=== PATIENT | male | born 1955 | race Caucasian/White ===

== ENCOUNTER 2018-06-01 17:14 | Emergency (ER) | payer OTHER ==
[2018-06-01 18:26] LABS: Absolute Lymphocytes (CBC) 3.3 K/uL (0.7-4.9); Absolute Monocytes 0.7 K/uL (0.1-1.3); Absolute Neutrophil 4.7 K/uL (1.8-8.0); Basophils % 0.5 % (0-1.3); Eosinophils % 2.6 % (0-4.4); Hematocrit 45.8 % (39.6-49.0); Lymphocytes % 36.7 % (15.3-44.8); MPV 8.2 fL (7.6-11.3); Monocytes % 8.2 % (3.3-12.3); RBC Red Blood Cell Count 5.48 M/uL (4.33-5.43)
[2018-06-01 18:30] LABS: Protime INR 1.04
[2018-06-01] MEDS ORDERED: FENTANYL CITR 100 MCG/2 ML ONE (18:39)
[2018-06-01] MEDS ORDERED: ONDANSETRON 4 MG/2 ML VIAL ONE (18:39)
[2018-06-01 18:47] LABS: ALT/SGPT 28 U/L (12-78); AST/SGOT 14 U/L (15-37); Albumin 3.4 g/dL (3.4-5.0); Alkaline Phosphatase 87 U/L (45-117); BUN Blood Urea Nitrogen 17 mg/dL (7-18); Bicarbonate 27 mmol/L (21-32); Bilirubin Direct < 0.1 mg/dL (0-0.2); Bilirubin Total 0.4 mg/dL (0.2-1.0); Glucose Level 312 mg/dL (74-106); NT PRO-BNP 6 pg/mL (<125); Protein, Total 7.3 g/dL (6.4-8.2); Sodium Level 133 mmol/L (136-145); Thyroid Stimulating Hormone 0.767 uIU/mL (0.360-3.740); Troponin (Emerg Dept Use Only) < 0.02 ng/mL (0.0-0.045)
--- NOTE | 2018-06-01 18:59 | RAD REPORT ---
EXAM DESCRIPTION: RAD - Chest Single View - 06/01/2018 6:35 pm CLINICAL HISTORY: Weight loss, weakness, shortness of breath COMPARISON: None. TECHNIQUE: AP portable chest image was obtained 1820 hours . FINDINGS: Lungs are clear. Heart and vasculature are normal. No measurable pleural effusion and no p neumothorax. No acute bony abnormality seen. No acute aortic findings suspected. IMPRESSION: No acute cardiopulmonary process.
--- NOTE | 2018-06-01 19:33 | EDPHYS ---
Physician Documentation [facility] Name: John Barrios Age: 62 yrs Sex: Male : 1955 Arrival Date: 06/01/2018 Time: 17:16 Bed 5 Private MD: ED Physician Jameel Wright HPI: 06/01 19:28 This 62 yrs old Male presents to ER via EMS with complaints of General jr8 Weakness. 19:28 Onset: The symptoms/episode began/occurred gradually, 1 month(s) ago, and became jr8 persistent. Associated signs and symptoms: The patient has no apparent associated signs or symptoms. Modifying factors: The patient symptoms are alleviated by nothing, the patient symptoms are aggravated by nothing. The patient has not experienced similar symptoms in the past. The patient has not recently seen a physician. Historical: - Allergies: 17:27 NKA; iw - Home Meds: 19:25 Xanax 1 mg oral tab [Active]; ak1 - PMHx: 17:27 Anxiety; Depression; iw - PSHx: 17:27 Appendectomy; iw - Immunization history:: Adult Immunizations not up to date. - Social history:: Smoking status: Patient/guardian denies using tobacco. - Ebola Screening: : Patient negative for fever greater than or equal to 101.5 degrees Fahrenheit, and additional compatible Ebola Virus Disease symptoms Patient denies exposure to infectious person Patient denies travel to an Ebola-affected area in the 21 days before illness onset No symptoms or risks identified at this time. ROS: 19:28 Eyes: Negative for injury, pain, redness, and discharge, ENT: Negative for injury, jr8 pain, and discharge, Neck: Negative for injury, pain, and swelling, Cardiovascular: Negative for chest pain, palpitations, and edema, Respiratory: Negative for shortness of breath, cough, wheezing, and pleuritic chest pain, Abdomen/GI: Negative for abdominal pain, nausea, vomiting, diarrhea, and constipation, Back: Negative for injury and pain, MS/Extremity: Negative for injury and deformity, Skin: Negative for injury, rash, and discoloration, Neuro: Negative for headache, weakness, numbness, tingling, and seizure. 19:28 Constitutional: Positive for fatigue, malaise. Exam: 19:28 Eyes: Pupils equal round and reactive to light, extra-ocular motions intact. Lids and jr8 lashes normal. Conjunctiva and sclera are non-icteric and not injected. Cornea within normal limits. Periorbital areas with no swelling, redness, or edema. ENT: Nares patent. No nasal discharge, no septal abnormalities noted. Tympanic membranes are normal and external auditory canals are clear. Oropharynx with no redness, swelling, or masses, exudates, or evidence of obstruction, uvula midline. Mucous membranes moist. Neck: Trachea midline, no thyromegaly or masses palpated, and no cervical lymphadenopathy. Supple, full range of motion without nuchal rigidity, or vertebral point tenderness. No Meningismus. Cardiovascular: Regular rate and rhythm with a normal S1 and S2. No gallops, murmurs, or rubs. Normal PMI, no JVD. No pulse deficits. Respiratory: Lungs have equal breath sounds bilaterally, clear to auscultation and percussion. No rales, rhonchi or wheezes noted. No increased work of breathing, no retractions or nasal flaring. Abdomen/GI: Soft, non-tender, with normal bowel sounds. No distension or tympany. No guarding or rebound. No evidence of tenderness throughout. Back: No spinal tenderness. No costovertebral tenderness. Full range of motion. Skin: Warm, dry with normal turgor. Normal color with no rashes, no lesions, and no evidence of cellulitis. MS/ Extremity: Pulses equal, no cyanosis. Neurovascular intact. Full, normal range of motion. Neuro: Awake and alert, GCS 15, oriented to person, place, time, and situation. Cranial nerves II-XII grossly intact. Motor strength 5/5 in all extremities. Sensory grossly intact. Cerebellar exam normal. Normal gait. Vital Signs: 17:28 BP 136 / 87; Pulse 106; Resp 18 S; Temp 98.2(O); Pulse Ox 98% on R/A; Weight 83.91 kg; iw Height 6 ft. 0 in. (182.88 cm); Pain 7/10; 18:16 BP 135 / 85; Pulse 102; Resp 17; Pulse Ox 99% on R/A; Pain 8/10; hb 19:23 BP 130 / 89; Pulse 94; Resp 16; Pulse Ox 97% on R/A; Pain 6/10; ak1 17:28 Body Mass Index 25.09 (83.91 kg, 182.88 cm) iw 19:23 pt c/o pain to right shoulder due to chronic shoulder pain. ak1 NIH Stroke Scale Scores: 18:05 NIHSS Score: 0 hb MDM: 17:21 Patient medically screened. [facility] 19:28 Data reviewed: vital signs, nurses notes, lab test result(s), EKG, radiologic studies, [facility] plain films, and as a result, I will discharge patient. Data interpreted: Pulse oximetry: on room air is 97 %. Interpretation: normal. Counseling: I had a detailed discussion with the patient and/or guardian regarding: the historical points, exam findings, and any diagnostic results supporting the discharge/admit diagnosis, lab results, radiology results, the need for outpatient follow up, a family practitioner, to return to the emergency department if symptoms worsen or persist or if there are any questions or concerns that arise at home. 06/01 17:57 Order name: Influenza Screen (a \T\ B) [facility] 06/01 17:57 Order name: [place] Screen Profile [facility] 06/01 17:57 Order name: Basic Metabolic Panel [facility] 06/01 17:57 Order name: CBC with Diff; Complete Time: 18:39 [facility] 06/01 17:57 Order name: LFT's; Complete Time: 18:57 [facility] 06/01 17:57 Order name: Magnesium; Complete Time: 18:57 [facility] 06/01 17:57 Order name: NT PRO-BNP; Complete Time: 18:57 [facility] 06/01 17:57 Order name: PT-INR; Complete Time: 18:39 [facility] 06/01 17:57 Order name: Troponin (emerg Dept Use Only); Complete Time: 18:57 [facility] 06/01 17:57 Order name: TSH; Complete Time: 18:57 [facility] 06/01 17:57 Order name: T4 Free; Complete Time: 18:57 [facility] 06/01 17:57 Order name: Influenza Screen (A ; Complete Time: 18:57 [facility] 06/01 17:57 Order name: [place] Screen; Complete Time: 18:57 [facility] 06/01 17:57 Order name: Basic Metabolic Panel; Complete Time: 18:57 [facility] 06/01 17:57 Order name: XRAY Chest (1 view); Complete Time: 19:27 [facility] 06/01 17:57 Order name: EKG; Complete Time: 17:58 [facility] 06/01 17:57 Order name: Cardiac monitoring; Complete Time: 18:17 [facility] 06/01 17:57 Order name: EKG - Nurse/Tech; Complete Time: 18:17 06/01 17:57 Order name: IV Saline Lock; Complete Time: 18:18 [facility] 06/01 17:57 Order name: Labs collected and sent; Complete Time: 18:18 [facility] 06/01 17:57 Order name: O2 Per Protocol; Complete Time: 18:18 [facility] 06/01 17:57 Order name: O2 Sat Monitoring; Complete Time: 18:18 [facility] 06/01 18:14 Order name: Glucose, Ancillary Testing; Complete Time: 18:20 [facility] 06/01 19:16 Order name: Urine Dipstick--Ancillary (enter results) mw2 Administered Medications: 18:10 Drug: NS 0.9% 1000 ml Route: IV; Rate: 1000 ml; Site: left antecubital; hb 19:49 Follow up: IV Status: Completed infusion ak1 18:32 Drug: fentaNYL (PF) 50 mcg Route: IVP; Site: left antecubital; hb 19:49 Follow up: Response: No adverse reaction ak1 18:33 Drug: Zofran 4 mg Route: IVP; Site: left antecubital; hb 19:49 Follow up: Response: No adverse reaction ak1 19:48 Drug: Ativan 0.5 mg Route: PO; ak1 19:51 Follow up: Response: Medication administered at discharge.; Medication administered at ak1 discharge.pt has son coming to pick him up Point of Care Testing: Blood Glucose: 18:12 Blood Glucose: 301 mg/dL; sg Ranges: Critical Glucose Levels:Adult <50 mg/dl or >400 mg/dl <40 mg/dl or >180 mg/dl Disposition: 06/02 15:57 Co-signature as Attending Physician, Jameel Wright MD I agree with the assessment and kdr plan of care. Disposition: 06/01/18 19:32 Discharged to Home. Impression: Type 2 diabetes mellitus, Hyperglycemia, unspecified. - Condition is Stable. - Discharge Instructions: Type 2 Diabetes Mellitus, Diagnosis, Adult, Hyperglycemia, Blood Glucose Monitoring, Adult, Diabetes Mellitus and Food, Preventing Type 2 Diabetes Mellitus, Screening for Type 2 Diabetes. - Prescriptions for Metformin 500 mg Oral Tablet - take 1 tablet by ORAL route once daily for 7 days Then take 1 tablet with morning meals AND evening meals; 30 tablet. - Medication Reconciliation Form, Thank You Letter, Antibiotic Education, Prescription Opioid Use form. - Follow up: Private Physician; When: 2 - 3 days; Reason: Recheck today's complaints, Continuance of care, Re-evaluation by your physician. - Problem is new. - Symptoms have improved. NIH Stroke Scale - NIH Stroke Score Date: 06/01/2018 Time: 18:05 Total Score = 0 1a. Level of Consciousness (LOC) - 0(Alert) 1b. Level of Consciousness (LOC) (Year \T\ Age) - 0(Both) 1c. LOC Commands (Open \T\ Closes Eyes/Thread Tool Grinder Set Up Operator) - 0(Both) 2. Best Gaze (Lateral Gaze Paresis) - 0(Normal) 3. Visual Field Loss - 0(No visual loss) 4. Facial Palsy - 0(Normal) 5a. Left Arm: Motor (10-second hold) - 0(No drift) 5b. Right Arm: Motor (10-second hold) - 0(No drift) 6a. Left Leg: Motor (5-second hold - always test supine) - 0(No drift) 6b. Right Leg: Motor (5-second hold - always test supine) - 0(No drift) 7. Limb Ataxia (finger/nose \T\ heel/singh - test with eyes open) - 0(Absent) 8. Sensory Loss (pinprick arms/legs/face) - 0(Normal) 9. Best Language: Aphasia (description/naming/reading) - 0(No aphasia) 10. Dysarthria (speech clarity - read or repeat words) - 0(Normal) 11. Extinction and Inattention (visual/tactile/auditory/spatial/personal) - 0(No abnormality) Initials: hb Signatures: Dispatcher [employer] EDMS Jameel Wright MD MD kdr Williams, Irene, RN RN iw Roszak, Josh, PA PA jr8 Millie Hoffmann RN RN ak1 Earlene Galvan RN RN hb Corrections: (The following items were deleted from the chart) 06/01 19:32 19:32 06/01/2018 19:32 Discharged to Home. Impression: Type 2 diabetes jr8 mellitus. Condition is Stable. Forms are Medication Reconciliation Form, Thank You Letter, Antibiotic Education, Prescription Opioid Use. Follow up: Private Physician; When: 2 - 3 days; Reason: Recheck today's complaints, Continuance of care, Re-evaluation by your physician. Problem is new. Symptoms have improved. jr8 19:50 19:32 06/01/2018 19:32 Discharged to Home. Impression: Type 2 diabetes ak1 mellitus; Hyperglycemia, unspecified. Condition is Stable. Forms are Medication Reconciliation Form, Thank You Letter, Antibiotic Education, Prescription Opioid Use. Follow up: Private Physician; When: 2 - 3 days; Reason: Recheck today's complaints, Continuance of care, Re-evaluation by your physician. Problem is new. Symptoms have improved. jr8
--- NOTE | 2018-06-01 19:33 | ER ---
Nurse's Notes [facility] Name: John Barrios Age: 62 yrs Sex: Male : 1955 Arrival Date: 06/01/2018 Time: 17:16 Bed 5 Private MD: Diagnosis: Type 2 diabetes mellitus;Hyperglycemia, unspecified Presentation: 06/01 17:19 Presenting complaint: Patient states: has been feeling very weak since Friday, can't iw sleep because he's so tired, c/o headache today, mild dizziness and blurry vision today, also c/o elpidio leg pain, states he is borderline diabetic, denies fever. Transition of care: patient was not received from another setting of care. Onset of symptoms was June 01, 2018. Risk Assessment: Do you want to hurt yourself or someone else? Patient reports no desire to harm self or others. Initial Sepsis Screen: Does the patient meet any 2 criteria? No. Patient's initial sepsis screen is negative. Does the patient have a suspected source of infection? No. Patient's initial sepsis screen is negative. Care prior to arrival: IV initiated. 20 GA, in the left antecubital area, Glucose check: 277. 17:19 Method Of Arrival: EMS: [facility] iw 17:19 Acuity: MELY 3 iw Historical: - Allergies: 17:27 NKA; iw - Home Meds: 19:25 Xanax 1 mg oral tab [Active]; ak1 - PMHx: 17:27 Anxiety; Depression; iw - PSHx: 17:27 Appendectomy; iw - Immunization history:: Adult Immunizations not up to date. - Social history:: Smoking status: Patient/guardian denies using tobacco. - Ebola Screening: : Patient negative for fever greater than or equal to 101.5 degrees Fahrenheit, and additional compatible Ebola Virus Disease symptoms Patient denies exposure to infectious person Patient denies travel to an Ebola-affected area in the 21 days before illness onset No symptoms or risks identified at this time. Screenin:04 Patient has been NPO before screening. The patient is alert, able to follow commands. hb The patient does not exhibit slurred or garbled speech The patient is not exhibiting difficulty speaking. The patient does not exhibit difficulty understanding words. The patient is able to swallow own secretions with no drooling or need for suction. Patient tolerated one teaspoon of water. No drooling, immediate coughing, gurgling, or clearing of the throat was noted. The patient tolerated 90mL of water. No drooling, immediate coughing, gurgling, or clearing of the throat was noted. The patient passed the bedside swallow screening. Oral medications may be given as ordered. Contact Physician for further diet orders. 18:16 Abuse screen: Denies threats or abuse. Denies injuries from another. Nutritional hb screening: No deficits noted. Tuberculosis screening: No symptoms or risk factors identified. Fall Risk Total Pruitt Fall Scale indicates Low Risk Score (25-44 pts). Fall prevention measures have been instituted. Side Rails Up X 2 Frequent Obs/Assesments occuring As available Patient and Family Educated on Fall Prevention Program and strategies. Assessment: 17:30 General: Appears in no apparent distress. Behavior is calm, cooperative. Pain: Pain hb currently is 8 out of 10 on a pain scale. Neuro: Level of Consciousness is awake, alert, obeys commands, Oriented to person, place, time, situation, Publishing Manager are equal bilaterally Moves all extremities. Full function Gait is steady, Speech is normal, Facial symmetry appears normal, Pupils are PERRLA, Intact. Cardiovascular: Heart tones S1 S2 present Capillary refill < 3 seconds Patient's skin is warm and dry. Respiratory: Airway is patent Respiratory effort is even, unlabored, Respiratory pattern is regular, symmetrical, Breath sounds are clear bilaterally. GI: No signs and/or symptoms were reported involving the gastrointestinal system. : No signs and/or symptoms were reported regarding the genitourinary system. EENT: No signs and/or symptoms were reported regarding the EENT system. Derm: Skin is intact, is healthy with good turgor, Skin is pink, warm \\T\\ dry. Musculoskeletal: No signs and/or symptoms reported regarding the musculoskeletal system. 18:16 Reassessment: Patient appears in no apparent distress at this time. No changes from hb previously documented assessment. Patient and/or family updated on plan of care and expected duration. Pain level reassessed. Patient is alert, oriented x 3, equal unlabored respirations, skin warm/dry/pink. 19:25 Reassessment: Patient appears in no apparent distress at this time. Patient and/or ak1 family updated on plan of care and expected duration. Pain level reassessed. Patient is alert, oriented x 3, equal unlabored respirations, skin warm/dry/pink. pt c/o right shoulder pain from chronic shoulder pain due to "old injury" pt resting comfortably watching TV in ER5. Vital Signs: 17:28 BP 136 / 87; Pulse 106; Resp 18 S; Temp 98.2(O); Pulse Ox 98% on R/A; Weight 83.91 kg; iw Height 6 ft. 0 in. (182.88 cm); Pain 7/10; 18:16 BP 135 / 85; Pulse 102; Resp 17; Pulse Ox 99% on R/A; Pain 8/10; hb 19:23 BP 130 / 89; Pulse 94; Resp 16; Pulse Ox 97% on R/A; Pain 6/10; ak1 17:28 Body Mass Index 25.09 (83.91 kg, 182.88 cm) iw 19:23 pt c/o pain to right shoulder due to chronic shoulder pain. ak1 NIH Stroke Scale Scores: 18:05 NIHSS Score: 0 hb ED Course: 17:16 Patient arrived in ED. iw 17:21 Pedro Pablo Weinberg PA is PHCP. jr8 17:21 Jameel Wright MD is Attending Physician. jr8 17:26 Triage completed. iw 17:35 Arm band placed on. iw 18:14 Earlene Galvan, ANA LUISA is Primary Nurse. hb 18:16 Patient has correct armband on for positive identification. Bed in low position. Call hb light in reach. Side rails up X 1. 18:16 Initial lab(s) drawn, by me, sent to lab. Maintain EMS IV. Dressing intact. Good blood hb return noted. Site clean \\T\\ dry. Gauge \\T\\ site: 20g LEFT AC. 18:29 X-ray completed. Portable x-ray completed in exam room. Patient tolerated procedure az well. 18:33 XRAY Chest (1 view) In Process Unspecified. EDMS 19:23 No provider procedures requiring assistance completed. ak1 19:50 IV discontinued, intact, bleeding controlled, No redness/swelling at site. Pressure ak1 dressing applied. Administered Medications: 18:10 Drug: NS 0.9% 1000 ml Route: IV; Rate: 1000 ml; Site: left antecubital; hb 19:49 Follow up: IV Status: Completed infusion ak1 18:32 Drug: fentaNYL (PF) 50 mcg Route: IVP; Site: left antecubital; hb 19:49 Follow up: Response: No adverse reaction ak1 18:33 Drug: Zofran 4 mg Route: IVP; Site: left antecubital; hb 19:49 Follow up: Response: No adverse reaction ak1 19:48 Drug: Ativan 0.5 mg Route: PO; ak1 19:51 Follow up: Response: Medication administered at discharge.; Medication administered at ak1 discharge.pt has son coming to pick him up Point of Care Testing: Blood Glucose: 18:12 Blood Glucose: 301 mg/dL; sg Ranges: Outcome: 19:32 Discharge ordered by . jr8 19:33 Condition: good ak1 19:37 Discharged to home ambulatory. ak1 19:37 Discharge instructions given to patient, Instructed on discharge instructions, follow up and referral plans. medication usage, Demonstrated understanding of instructions, follow-up care, medications, Prescriptions given X 1. 19:50 Patient left the ED. ak1 NIH Stroke Scale - NIH Stroke Score Date: 06/01/2018 Time: 18:05 Total Score = 0 1a. Level of Consciousness (LOC) - 0(Alert) 1b. Level of Consciousness (LOC) (Year \\T\\ Age) - 0(Both) 1c. LOC Commands (Open \\T\\ Closes Eyes/Rotoprinter) - 0(Both) 2. Best Gaze (Lateral Gaze Paresis) - 0(Normal) 3. Visual Field Loss - 0(No visual loss) 4. Facial Palsy - 0(Normal) 5a. Left Arm: Motor (10-second hold) - 0(No drift) 5b. Right Arm: Motor (10-second hold) - 0(No drift) 6a. Left Leg: Motor (5-second hold - always test supine) - 0(No drift) 6b. Right Leg: Motor (5-second hold - always test supine) - 0(No drift) 7. Limb Ataxia (finger/nose \\T\\ heel/singh - test with eyes open) - 0(Absent) 8. Sensory Loss (pinprick arms/legs/face) - 0(Normal) 9. Best Language: Aphasia (description/naming/reading) - 0(No aphasia) 10. Dysarthria (speech clarity - read or repeat words) - 0(Normal) 11. Extinction and Inattention (visual/tactile/auditory/spatial/personal) - 0(No abnormality) Initials: hb Signatures: Dispatcher [employer] Antwon Dent RN RN Evelia Martinez RN RN iw Roszak, Josh, PA PA jr8 Millie Hoffmann RN RN ak1 Earlene Galvan RN RN Shaista Christianson
[2018-06-01] MEDS ORDERED: LORAZEPAM 0.5 MG TABLET ONE (19:57)
[2018-06-01 21:32] LABS: Urine Blood NEGATIVE (NEG); Urine Glucose 2+ (NEG); Urine Protein NEGATIVE (NEG)
--- NOTE | 2018-06-02 08:47 | EKG ---
Test Date: 2018-06-01 Test Time: 18:13:55 Clinical Liaison: ILIA MEASUREMENT RESULTS: Intervals: Rate: 93 NV: 172 QRSD: 76 QT: 350 QTc: 435 [place]: P: 69 NV: 172 QRS: -22 T: 76 INTERPRETIVE STATEMENTS: Normal sinus rhythm Normal ECG Compared to ECG 05/28/2008 19:14:46 No significant changes Electronically Signed On 06-02-18 08:46:29 POSTAL DELIVERY OFFICER by Mitchel Wang
== END 2018-06-01 19:50 | disposition home or self-care (01) ==
LOC: ER 17:14
DX: E11.65 Type 2 diabetes mellitus with hyperglycemia (principal); F41.9 Anxiety disorder, unspecified; F32.9 Major depressive disorder, single episode, unspecified
CPT/HCPCS: 36415; 71045; 80048; 80076; 81003; 82962; 83735; 83880; 84439; 84443; 84484; 85025; 85610; 86308; 87804 ×2; 93005; 96361; 96374; 96375; 99284; J2405; J3010

== ENCOUNTER 2019-09-24 11:58 | Emergency (ER) | payer OTHER, BC ==
--- OUTSIDE RECORDS SUMMARY | 2019-09-24 12:00 | XMS REPORT ---
:1955 Author Organization [facility] t Address [address] [place] [address] [place] [id number] Care Team Providers Name Role Phone Unavailable Unavailable Unavailable Problems This patient has no known problems. Allergies, Adverse Reactions, Alerts This patient has no known allergies or adverse reactions. Medications This patient has no known medications.
[2019-09-24 12:40] LABS: Protime INR 1.04
[2019-09-24 12:45] LABS: Absolute Lymphocytes (CBC) 2.9 K/uL (0.7-4.9)
[2019-09-24 12:51] LABS: Basophils % 0.4 % (0-1.3); Hematocrit 56.5 % (39.6-49.0); Lymphocytes % 30.5 % (15.3-44.8); MPV 8.4 fL (7.6-11.3); RBC Red Blood Cell Count 6.38 M/uL (4.33-5.43)
[2019-09-24 12:53] LABS: ALT/SGPT 39 U/L (12-78); AST/SGOT 32 U/L (15-37); Albumin 3.4 g/dL (3.4-5.0); Alkaline Phosphatase 56 U/L (45-117); BUN Blood Urea Nitrogen 11 mg/dL (7-18); Bicarbonate 28 mmol/L (21-32); Bilirubin Direct 0.1 mg/dL (0-0.2); Bilirubin Total 0.6 mg/dL (0.2-1.0); Glucose Level 172 mg/dL (74-106); Magnesium 1.8 mg/dL (1.8-2.4); NT PRO-BNP 20 pg/mL (<125); Protein, Total 7.1 g/dL (6.4-8.2); Sodium Level 135 mmol/L (136-145); Troponin (Emerg Dept Use Only) < 0.02 ng/mL (0.0-0.045)
--- NOTE | 2019-09-24 13:04 | RAD REPORT ---
EXAM DESCRIPTION: RAD - Chest Single View - 09/24/2019 12:36 pm CLINICAL HISTORY: Dyspnea;Chest pain COMPARISON: Portable May 2018 TECHNIQUE: AP portable chest image was obtained 09/24/2019 12:36 pm . FINDINGS: No focal mass or consolidation. Interstitial pattern is mildly prominent but not substanti ally different from comparison. This baseline prominence could mask mild edema or mild interstitial i nfiltrate. Heart size is normal. No vascular engorgement. Trachea is midline. No measurable pleural e ffusion and no pneumothorax. No acute bony abnormality seen. No acute aortic findings suspected. IMPRESSION: No focal mass or consolidation. Patient has a prominent baseline interstitial pattern that potentially masks early interstitial edema or interstitial infiltrate.
[2019-09-24] MEDS ORDERED: LORAZEPAM 0.5 MG TABLET ONE (13:37)
--- NOTE | 2019-09-24 14:35 | EKG ---
Test Date: 2019-09-24 Test Time: 12:03:35 Sleep Scientist: JAN MEASUREMENT RESULTS: Intervals: Rate: 108 VA: 156 QRSD: 70 QT: 306 QTc: 410 [place]: P: 66 VA: 156 QRS: -26 T: 87 INTERPRETIVE STATEMENTS: Sinus tachycardia Moderate voltage criteria for LVH, may be normal variant Borderline ECG Compared to ECG 06/01/2018 18:13:55 Left ventricular hypertrophy now present Sinus rhythm no longer present Electronically Signed On 09-24-19 14:35:29 CDT by Chris Day
--- NOTE | 2019-09-24 15:13 | EDPHYS ---
Physician Documentation [facility] Name: John Barrios Age: 64 yrs Sex: Male : 1955 Arrival Date: 09/24/2019 Time: 12:04 Bed 2 Private MD: ED Physician Ulisses Ferrera HPI: 09/23 13:20 This 64 yrs old Male presents to ER via EMS with complaints of Anxiety. jr8 13:20 The patient presents to the emergency department with anxiety. Onset: The jr8 symptoms/episode began/occurred acutely, today. Associated signs and symptoms: Pertinent positives; nausea, shortness of breath, diaphoresis . Severity of symptoms: At their worst the symptoms were moderate in the emergency department the symptoms have improved. It is unknown whether or not the patient has had similar symptoms in the past. The patient has not recently seen a physician. Patient stated that he has history of anxiety. Stated that he has had a lot of stress recently with several family deaths. Stated that his children has been fighting. While thinking today started to become anxious. Started to have nausea, diaphoresis, shortness of breath, and chest flutter. Stated that he has not had that with his anxiety in past which worried him . Historical: - Allergies: 12:10 Poison serafin; sv 12:10 No Known Drug Allergies; sv - Home Meds: 12:10 Xanax 1 mg oral tab as needed [Active]; Hydrocodone-Acetaminophen Oral [Active]; sv - PMHx: 12:10 Anxiety; Depression; Diabetes - NIDDM; sv - PSHx: 12:10 Appendectomy; sv - Immunization history:: Adult Immunizations up to date. - Social history:: Smoking status: Patient denies any tobacco usage or history of. ROS: 13:20 Eyes: Negative for injury, pain, redness, and discharge, ENT: Negative for injury, jr8 pain, and discharge, Neck: Negative for injury, pain, and swelling, Back: Negative for injury and pain, MS/Extremity: Negative for injury and deformity, Skin: Negative for injury, rash, and discoloration, Neuro: Negative for headache, weakness, numbness, tingling, and seizure. 13:20 Cardiovascular: Positive for palpitations. 13:20 Respiratory: Positive for shortness of breath. 13:20 Abdomen/GI: Positive for nausea, Negative for abdominal pain, vomiting, diarrhea, constipation, abdominal cramps, abdominal distension. 13:20 Psych: Positive for anxiety. Exam: 13:20 Eyes: Pupils equal round and reactive to light, extra-ocular motions intact. Lids and jr8 lashes normal. Conjunctiva and sclera are non-icteric and not injected. Cornea within normal limits. Periorbital areas with no swelling, redness, or edema. ENT: Nares patent. No nasal discharge, no septal abnormalities noted. Tympanic membranes are normal and external auditory canals are clear. Oropharynx with no redness, swelling, or masses, exudates, or evidence of obstruction, uvula midline. Mucous membranes moist. Neck: Trachea midline, no thyromegaly or masses palpated, and no cervical lymphadenopathy. Supple, full range of motion without nuchal rigidity, or vertebral point tenderness. No Meningismus. Respiratory: Lungs have equal breath sounds bilaterally, clear to auscultation and percussion. No rales, rhonchi or wheezes noted. No increased work of breathing, no retractions or nasal flaring. Abdomen/GI: Soft, non-tender, with normal bowel sounds. No distension or tympany. No guarding or rebound. No evidence of tenderness throughout. Back: No spinal tenderness. No costovertebral tenderness. Full range of motion. Skin: Warm, dry with normal turgor. Normal color with no rashes, no lesions, and no evidence of cellulitis. MS/ Extremity: Pulses equal, no cyanosis. Neurovascular intact. Full, normal range of motion. Neuro: Awake and alert, GCS 15, oriented to person, place, time, and situation. Cranial nerves II-XII grossly intact. Motor strength 5/5 in all extremities. Sensory grossly intact. Cerebellar exam normal. Normal gait. 13:20 Cardiovascular: Rate: tachycardic, Rhythm: regular, Pulses: Pulses are 2+ in right radial artery and left radial artery. Heart sounds: normal, normal S1and S2, no S3 or S4, no murmur, no rub, no gallop, Edema: is not appreciated, JVD: is not appreciated. Vital Signs: 11:46 BP 131 / 87; Pulse 110; Resp 17; Temp 97.5; Pulse Ox 98% ; Pain 0/10; sv 12:40 BP 151 / 93; Pulse 108; Resp 16; Temp 98.9(TE); Pulse Ox 97% on R/A; mh5 13:26 BP 134 / 80; Pulse 102; Resp 16; Temp 97.6(TE); Pulse Ox 98% on R/A; mh5 15:00 BP 146 / 87; Pulse 98; Resp 20; Temp 97.9; Pulse Ox 96% on R/A; vc MDM: 12:11 Patient medically screened. [facility] 15:11 Data reviewed: vital signs, nurses notes, lab test result(s), EKG, radiologic studies, [facility] plain films. Data interpreted: Pulse oximetry: on room air is 98 %. Interpretation: normal. Counseling: I had a detailed discussion with the patient and/or guardian regarding: the historical points, exam findings, and any diagnostic results supporting the discharge/admit diagnosis, lab results, radiology results, the need for outpatient follow up, a family practitioner, to return to the emergency department if symptoms worsen or persist or if there are any questions or concerns that arise at home. Response to treatment: the patient's symptoms have resolved after treatment. 09/23 12:11 Order name: Basic Metabolic Panel; Complete Time: 13:04 [facility] 09/23 12:11 Order name: CBC with Diff; Complete Time: 13: [facility] 09/23 12:11 Order name: LFT's; Complete Time: 13: 09/23 12:11 Order name: Magnesium; Complete Time: 13: [facility] 09/23 12:11 Order name: NT PRO-BNP; Complete Time: 13:04 [facility] 09/23 12:11 Order name: PT-INR; Complete Time: 13: [facility] 09/23 12:11 Order name: Troponin (emerg Dept Use Only); Complete Time: 13:04 [facility] 09/23 12:11 Order name: XRAY Chest (1 view); Complete Time: 13:05 [facility] 09/23 12:11 Order name: EKG; Complete Time: 12:13 09/23 12:11 Order name: Cardiac monitoring; Complete Time: 12:18 09/23 12:11 Order name: EKG - Nurse/Tech; Complete Time: 12:18 [facility] 09/23 13:50 Order name: Diet Regular; Complete Time: 13:51 09/23 14:08 Order name: Troponin (emerg Dept Use Only); Complete Time: 15:11 8 09/23 12:11 Order name: IV Saline Lock; Complete Time: 12:18 8 09/23 12:11 Order name: Labs collected and sent; Complete Time: 12:18 8 09/23 12:11 Order name: O2 Per Protocol; Complete Time: 12:18 8 09/23 12:11 Order name: O2 Sat Monitoring; Complete Time: 12:18 Administered Medications: 13:34 Drug: XANax Tablet 0.5 mg Route: PO; jl7 15:29 Follow up: Response: No adverse reaction vc Disposition: 15:23 Co-signature as Attending Physician, Ulisses Ferrera DO I agree with the assessment and ms3 plan of care. Disposition: 09/24/19 15:12 Discharged to Home. Impression: Panic disorder [episodic paroxysmal anxiety] without agoraphobia. - Condition is Stable. - Discharge Instructions: Panic Attacks. - Medication Reconciliation Form, Thank You Letter, Antibiotic Education, Prescription Opioid Use form. - Follow up: Private Physician; When: 2 - 3 days; Reason: Recheck today's complaints, Continuance of care, Re-evaluation by your physician. - Problem is new. - Symptoms have improved. Signatures: Dispatcher [employer] Hermelinda Aguilar, RN Pedro Pablo Aguilar PA PA jr8 Clarisa Joseph RN RN jl7 Emi Pena RN RN vc Sims, Marcus, DO DO ms3 Corrections: (The following items were deleted from the chart) 15:36 15:12 09/24/2019 15:12 Discharged to Home. Impression: Panic disorder [episodic vc paroxysmal anxiety] without agoraphobia. Condition is Stable. Forms are Medication Reconciliation Form, Thank You Letter, Antibiotic Education, Prescription Opioid Use. Follow up: Private Physician; When: 2 - 3 days; Reason: Recheck today's complaints, Continuance of care, Re-evaluation by your physician. Problem is new. Symptoms have improved. jr8
--- NOTE | 2019-09-24 15:13 | ER ---
Nurse's Notes [facility] Name: John Barrios Age: 64 yrs Sex: Male : 1955 Arrival Date: 09/24/2019 Time: 12:04 Bed 2 Private MD: Diagnosis: Panic disorder [episodic paroxysmal anxiety] without agoraphobia Presentation: 09/23 11:46 Chief complaint: EMS states: he showed up at their station c/o shakiness, was pale and sv diaphoretic. They did an EKG-ST BS-174 BP 160/90 HR-117 98% RA 97.9. Reports 2 days ago he had his left eye with blurry lines but went away. Reports that he has been under a lot of stress lately and his dad in June. Coronavirus screen: Proceed with normal triage. Patient denies a cough. Patient denies shortness of breath or difficulty breathing. Patient denies measured and/or subjective temperature greater than 100.4F prior to today's visit. Patient denies travel on a cruise ship or to a country the [facility] currently lists as an affected area. Patient denies contact with known and/or suspected case of COVID-19. Ebola Screen: No symptoms or risks identified at this time. Initial Sepsis Screen: Does the patient meet any 2 criteria? No. Patient's initial sepsis screen is negative. Does the patient have a suspected source of infection? No. Patient's initial sepsis screen is negative. Risk Assessment: Do you want to hurt yourself or someone else? Patient reports no desire to harm self or others. Onset of symptoms was September 24, 2019. 11:46 Method Of Arrival: EMS: [facility] sv 11:46 Acuity: MELY 3 sv 11:46 Care prior to arrival: IV initiated. 20 GA, in the left antecubital area. sv Triage Assessment: 12:11 General: Appears in no apparent distress. comfortable, well developed, Behavior is sv calm, cooperative, appropriate for age. Pain: Denies pain. Neuro: Level of Consciousness is awake, alert, obeys commands, Oriented to person, place, time, situation, Moves all extremities. Full function Gait is steady. Respiratory: Airway is patent Respiratory effort is even, unlabored, Respiratory pattern is regular, symmetrical. Derm: Skin is pink, warm \\T\\ dry. Historical: - Allergies: 12:10 Poison serafin; sv 12:10 No Known Drug Allergies; sv - Home Meds: 12:10 Xanax 1 mg oral tab as needed [Active]; Hydrocodone-Acetaminophen Oral [Active]; sv - PMHx: 12:10 Anxiety; Depression; Diabetes - NIDDM; sv - PSHx: 12:10 Appendectomy; sv - Immunization history:: Adult Immunizations up to date. - Social history:: Smoking status: Patient denies any tobacco usage or history of. Screenin:11 Abuse screen: Denies threats or abuse. Denies injuries from another. Nutritional sv screening: No deficits noted. Tuberculosis screening: No symptoms or risk factors identified. Fall Risk None identified. Assessment: 13:00 General: Appears uncomfortable, Behavior is appropriate for age, agitated, anxious. vc Pain: Denies pain. Neuro: Level of Consciousness is awake, alert, obeys commands, Oriented to person, place, time, situation. Cardiovascular: Patient's skin is warm and dry. Cardiovascular: Reports lightheadedness. Respiratory: Airway is patent Respiratory effort is even, unlabored, Respiratory pattern is regular, symmetrical. Respiratory:. GI: No signs and/or symptoms were reported involving the gastrointestinal system. : No signs and/or symptoms were reported regarding the genitourinary system. EENT: No signs and/or symptoms were reported regarding the EENT system. Derm: No deficits noted. 13:15 Reassessment: Pt states "Can the doc give me a little Ativan, I'm feeling like I'm jl7 about ready to walk out." ERP notified, see MAR for orders. 14:15 Reassessment: Patient appears in no apparent distress at this time. Patient and/or vc family updated on plan of care and expected duration. Pain level reassessed. 15:15 Reassessment: Patient appears in no apparent distress at this time. Patient and/or vc family updated on plan of care and expected duration. Pain level reassessed. Patient is alert, oriented x 3, equal unlabored respirations, skin warm/dry/pink. Patient states symptoms have improved. Neuro: Level of Consciousness is awake, alert, obeys commands, Oriented to person, place, time, situation. Vital Signs: 11:46 BP 131 / 87; Pulse 110; Resp 17; Temp 97.5; Pulse Ox 98% ; Pain 0/10; sv 12:40 BP 151 / 93; Pulse 108; Resp 16; Temp 98.9(TE); Pulse Ox 97% on R/A; mh5 13:26 BP 134 / 80; Pulse 102; Resp 16; Temp 97.6(TE); Pulse Ox 98% on R/A; mh5 15:00 BP 146 / 87; Pulse 98; Resp 20; Temp 97.9; Pulse Ox 96% on R/A; vc ED Course: 12:00 Report given to Emi OROSCO. sv 12:04 Patient arrived in ED. sv 12:04 Hermelinda Rodriguez, ANA LUISA is Primary Nurse. sv 12:08 Triage completed. sv 12:11 Nurse Practitioner and/or Physician Hospital [facility] to see patient. sv 12:11 Pedro Pablo Weinberg PA is PHCP. jr8 12:11 Ulisses Ferrera DO is Attending Physician. jr8 12:11 Arm band placed on. sv 12:11 Patient has correct armband on for positive identification. Placed in gown. Bed in low sv position. Call light in reach. Side rails up X2. quality assurance monitor body on. Pulse ox on. NIBP on. Door closed. Head of bed elevated. 12:26 Basic Metabolic Panel Sent. 5 12:26 CBC with Diff Sent. 5 12:26 LFT's Sent. 5 12:26 Magnesium Sent. 5 12:26 NT PRO-BNP Sent. 5 12:27 PT-INR Sent. 5 12:27 Troponin (emerg Dept Use Only) Sent. 5 12:27 Initial lab(s) drawn, by ut, sent to lab. Maintain EMS IV. Dressing intact. mh5 12:37 XRAY Chest (1 view) In Process Unspecified. EDMS 15:14 Emi Pena, ANA LUISA is Primary Nurse. vc 15:14 No provider procedures requiring assistance completed. vc 15:28 IV discontinued, intact, bleeding controlled, No redness/swelling at site. Pressure vc dressing applied. Administered Medications: 13:34 Drug: XANax Tablet 0.5 mg Route: PO; jl7 15:29 Follow up: Response: No adverse reaction vc Outcome: 15:12 Discharge ordered by . jr8 15:27 Discharged to home ambulatory. vc 15:27 Condition: good 15:27 Discharge instructions given to patient, Instructed on discharge instructions, follow up and referral plans. Demonstrated understanding of instructions, follow-up care. 15:36 Patient left the ED. vc Signatures: Dispatcher [employer] Hermelinda Aguilar RN RN Pedro Pablo Weinberg PA PA jr8 Martinez, Maria mh5 Leal, Jahala, RN RN jl7 Emi Pena RN RN vc Corrections: (The following items were deleted from the chart) 12:13 11:46 Acuity: MELY 4 [facility]
[2019-09-24 15:54] VITALS: BP 146/87; TEMP 97.9; O2SAT 96
== END 2019-09-24 15:36 | disposition home or self-care (01) ==
LOC: ER 11:58
DX: F41.0 Panic disorder [episodic paroxysmal anxiety] (principal); F32.9 Major depressive disorder, single episode, unspecified; E11.9 Type 2 diabetes mellitus without complications; Z91.09 Other allergy status, other than to drugs and biological substances
CPT/HCPCS: 36415; 71045; 80048; 80076; 83735; 83880; 84484; 85025; 85610; 93005; 99284

== ENCOUNTER 2020-08-05 12:14 | Emergency (ER) | payer OTHER, BC ==
--- OUTSIDE RECORDS SUMMARY | 2020-08-05 12:16 | XMS REPORT | Continuity of Care Document ---
:1955 Author Organization [facility] t Address [address] [place] [address] Dr. Resendiz [address] [place] [id number] Care Team Providers Name Role Phone Unavailable Unavailable Unavailable Problems This patient has no known problems. Allergies, Adverse Reactions, Alerts This patient has no known allergies or adverse reactions. Medications This patient has no known medications. Procedures This patient has no known procedures. Results This patient has no known results.
[2020-08-05 12:45] LABS: Absolute Lymphocytes (CBC) 3.1 K/uL (0.7-4.9); Basophils % 0.7 % (0-1.3); Hematocrit 46.4 % (39.6-49.0); Lymphocytes % 30.1 % (15.3-44.8); MPV 8.3 fL (7.6-11.3); RBC Red Blood Cell Count 5.42 M/uL (4.33-5.43)
[2020-08-05] MEDS ORDERED: CEFTRIAXONE/SWI 1gm 1 GM/10 ML SYR ONE (12:51)
[2020-08-05] MEDS ORDERED: ONDANSETRON 4 MG/2 ML VIAL ONE (12:51)
[2020-08-05] MEDS ORDERED: NA CHLORIDE 0.9% 1,000 ML ONE (12:51)
[2020-08-05] MEDS ORDERED: MORPHINE 4 MG/ML SYR ONE (12:51)
[2020-08-05] MEDS ORDERED: LORazepam 2 MG/ML VIAL ONE (13:03)
[2020-08-05 13:04] LABS: Protime INR 1.03
--- NOTE | 2020-08-05 13:14 | RAD REPORT ---
EXAM DESCRIPTION: RAD - Chest Single View - 08/05/2020 1:03 pm CLINICAL HISTORY: COUGH COMPARISON: Portable September 2019 TECHNIQUE: AP portable chest image was obtained 08/05/2020 1:03 pm . FINDINGS: No focal mass or consolidation. Interstitial pattern is prominent but not substantially di fferent. Severity of chronic disease could mask mild interstitial edema or infiltrate. Heart and vasc ulature are normal. No measurable pleural effusion and no pneumothorax. No acute bony abnormality see n. No acute aortic findings suspected. IMPRESSION: No acute cardiopulmonary process. The stable, chronic interstitial pattern could mask edema and infiltrate.
[2020-08-05 13:16] LABS: ALT/SGPT 21 U/L (12-78); AST/SGOT 11 U/L (15-37); Albumin 3.1 g/dL (3.4-5.0); Alkaline Phosphatase 76 U/L (45-117); BUN Blood Urea Nitrogen 12 mg/dL (7-18); Bicarbonate 24 mmol/L (21-32); Bilirubin Direct 0.1 mg/dL (0-0.2); Bilirubin Total 0.5 mg/dL (0.2-1.0); Glucose Level 239 mg/dL (74-106); Lipase 32 U/L (73-393); Magnesium 1.6 mg/dL (1.8-2.4); NT PRO-BNP 13 pg/mL (<125); Potassium 3.9 mmol/L (3.5-5.1); Protein, Total 6.5 g/dL (6.4-8.2); Sodium Level 140 mmol/L (136-145); Troponin (Emerg Dept Use Only) < 0.02 ng/mL (0.0-0.045)
[2020-08-05 13:29] LABS: White Blood Cell Scan OK (OK)
[2020-08-05 13:30] LABS: Blood Morphology Comment NOT SEEN (NOT SEEN); Platelet Estimate ADEQ
--- NOTE | 2020-08-05 14:31 | ER ---
Nurse's Notes [facility] Name: John Barrios Age: 64 yrs Sex: Male : 1955 Arrival Date: 08/05/2020 Time: 12:14 Bed 6 Private MD: Diagnosis: Other chronic pain;Type 2 diabetes mellitus;Hypomagnesemia Presentation: 08/05 12:14 Chief complaint: EMS states: "pt reporting body aches and bad right shoulder pain. pt jd3 reporting that he is probably dehydrated fot drinking enough water and currently treating an ongoing UTI.". Coronavirus screen: At this time, the client does not indicate any symptoms associated with coronavirus-19. Ebola Screen: Patient negative for fever greater than or equal to 101.5 degrees Fahrenheit, and additional compatible Ebola Virus Disease symptoms. Initial Sepsis Screen: Does the patient meet any 2 criteria? No. Patient's initial sepsis screen is negative. Does the patient have a suspected source of infection? No. Patient's initial sepsis screen is negative. Risk Assessment: Do you want to hurt yourself or someone else? Patient reports no desire to harm self or others. Onset of symptoms was August 05, 2020. 12:14 Method Of Arrival: EMS: [facility] jd3 12:14 Acuity: MELY 3 jd3 12:24 Care prior to arrival: Medication(s) given: Normal saline infusion, 300 ml IV jd3 initiated. 18 GA, in the left antecubital area, Glucose check: 254. Historical: - Allergies: 12:17 POISON PETTY; jd3 12:17 NKA; jd3 - Home Meds: 12:17 Xanax 1 mg Oral tab as needed [Active]; Hydrocodone-Acetaminophen Oral [Active]; jd3 - PMHx: 12:17 Anxiety; Depression; Diabetes - NIDDM; jd3 - PSHx: 12:17 Appendectomy; Hernia repair; jd3 - Immunization history:: Adult Immunizations unknown. - Social history:: Smoking status: Patient denies any tobacco usage or history of. - Family history:: not pertinent. Screenin:22 Abuse screen: Denies threats or abuse. Nutritional screening: No deficits noted. jd3 Tuberculosis screening: No symptoms or risk factors identified. Fall Risk Ambulatory Aid- None/Bed Rest/Nurse Assist (0 pts). Gait- Normal/Bed Rest/Wheelchair (0 pts) Mental Status- Oriented to own ability (0 pts). Total Pruitt Fall Scale indicates No Risk (0-24 pts). Assessment: 12:18 General: Appears in no apparent distress. uncomfortable, Behavior is calm, cooperative, jd3 appropriate for age. Pain: Complains of pain in right shoulder Quality of pain is described as sharp, tender. Neuro: Level of Consciousness is awake, alert, obeys commands, Oriented to person, place, time, situation, Reports diplopia, dizziness, since 0600. Cardiovascular: Denies chest pain, Capillary refill < 3 seconds Patient's skin is warm and dry. Respiratory: Airway is patent Respiratory effort is even, unlabored, Respiratory pattern is regular, symmetrical, Denies cough, shortness of breath. GI: No signs and/or symptoms were reported involving the gastrointestinal system. : Reports burning with urination, urinary frequency. EENT: No signs and/or symptoms were reported regarding the EENT system. Derm: Skin is intact, Skin is dry, Skin is normal, Skin temperature is warm. Musculoskeletal: Circulation, motion, and sensation intact. Range of motion: intact in all extremities. 13:32 Reassessment: Patient appears in no apparent distress at this time. Patient and/or jd3 family updated on plan of care and expected duration. Pain level reassessed. Patient is alert, oriented x 3, equal unlabored respirations, skin warm/dry/pink. Patient states feeling better. 15:00 Reassessment: Patient appears in no apparent distress at this time. Patient and/or bp family updated on plan of care and expected duration. Pain level reassessed. Patient is alert, oriented x 3, equal unlabored respirations, skin warm/dry/pink. Patient states feeling better. 15:32 Reassessment: Patient appears in no apparent distress at this time. Patient and/or jd3 family updated on plan of care and expected duration. Pain level reassessed. Patient is alert, oriented x 3, equal unlabored respirations, skin warm/dry/pink. awaiting IV medication completion before discharge. 16:05 Reassessment: PT D/C HOME AMBULATORY, DX WITH CHRONIC PAIN. bp Vital Signs: 12:17 BP 137 / 87; Pulse 105; Resp 17 S; Temp 97.8(O); Pulse Ox 98% on R/A; Weight 84.37 kg jd3 (R); Height 6 ft. 0 in. (182.88 cm) (R); Pain 10/10; 13:32 BP 129 / 83; Pulse 96; Resp 17 S; Pulse Ox 98% on R/A; jd3 14:30 BP 131 / 84; Pulse 96; Resp 19; Pulse Ox 96% ; bp 15:28 BP 147 / 87; Pulse 98; Resp 17; Pulse Ox 98% ; bp 15:32 BP 147 / 87; Pulse 97; Resp 17 S; Pulse Ox 97% on R/A; jd3 12:17 Body Mass Index 25.23 (84.37 kg, 182.88 cm) jd3 ED Course: 12:14 Patient arrived in ED. jd3 12:14 Joseph Soares RN is Primary Nurse. jd3 12:16 Triage completed. jd3 12:18 Arm band placed on. jd3 12:22 Ethan Dominguez MD is Attending Physician. daren 12:22 Patient has correct armband on for positive identification. Bed in low position. Call j light in reach. Side rails up X 1. Pulse ox on. NIBP on. 12:25 Maintain EMS IV. Dressing intact. Good blood return noted. Site clean \\T\\ dry. Gauge \\T\\ raymon 3 site: 18 G left AC. 14:29 Celeste Kwan DO is Referral Physician. daren 14:29 Dino Parry DO is Referral Physician. daren 15:28 No provider procedures requiring assistance completed. IV discontinued, intact, bp bleeding controlled, No redness/swelling at site. Pressure dressing applied. Administered Medications: 12:49 Drug: Ativan 1 mg Route: IVP; Site: left antecubital; jd3 13:40 Follow up: Response: No adverse reaction jd3 12:50 Drug: NS 0.9% 1000 ml Route: IV; Rate: 1 bolus; Site: left antecubital; jd3 15:58 Follow up: IV Status: Completed infusion; IV Intake: 1000ml bp 12:50 Drug: Rocephin 1 grams Route: IV; Rate: per protocol; Site: left antecubital; jd3 13:50 Follow up: Response: No adverse reaction; IV Status: Completed infusion jd3 12:50 Drug: morphine 4 mg Route: IVP; Site: left antecubital; jd3 13:50 Follow up: Response: No adverse reaction; RASS: Alert and Calm (0) jd3 12:50 Drug: Zofran (Ondansetron) 4 mg Route: IVP; Site: left antecubital; jd3 13:50 Follow up: Response: No adverse reaction jd3 14:52 Drug: Magnesium Sulfate 1 grams Route: IVPB; Infused Over: 30 mins; Site: left [facility] antecubital; 15:57 Follow up: IV Status: Completed infusion; IV Intake: 100ml bp Intake: 15:57 IV: 100ml; Total: 100ml. bp 15:58 IV: 1000ml; Total: 1100ml. bp Outcome: 14:30 Discharge ordered by . daren 15:28 Discharged to home ambulatory. bp 15:28 Condition: stable 15:28 Discharge instructions given to patient, Instructed on discharge instructions, follow up and referral plans. no drinking with medication, Prescriptions given X 1. 16:05 Patient left the ED. bp Signatures: Ethan Dominguez MD MD cha Davies, Jonathon RN RN jClint Vieyra, RN RN bp
--- NOTE | 2020-08-05 14:31 | EDPHYS ---
Physician Documentation [facility] Name: John Barrios Age: 64 yrs Sex: Male : 1955 Arrival Date: 08/05/2020 Time: 12:14 Bed 6 Private MD: ED Physician Ethan Dominguez HPI: 08/05 12:33 This 64 yrs old Male presents to ER via EMS with complaints of dysuria and daren right shoulder pain. 12:33 The patient or guardian complains of decreased range of motion, pain, that is chronic. daren right shoulder. Context: resulted from from a chronic condition. Onset: The symptoms/episode began/occurred this morning. Modifying factors: the symptoms are alleviated by remaining still, The symptoms are aggravated by lifting weight, movement, rotation of arm. Associated signs and symptoms: Pertinent positives: Weakness in right arm, left arm, right leg and left leg. The patient presents with urinary symptoms, dysuria. Onset: The symptoms/episode began/occurred 2 day(s) ago. Modifying factors: The symptoms are alleviated by nothing, the symptoms are aggravated by nothing. Severity of symptoms: At their worst the symptoms were mild, moderate, in the emergency department the symptoms are unchanged. Historical: - Allergies: 12:17 POISON PETTY; jd3 12:17 NKA; jd3 - Home Meds: 12:17 Xanax 1 mg Oral tab as needed [Active]; Hydrocodone-Acetaminophen Oral [Active]; jd3 - PMHx: 12:17 Anxiety; Depression; Diabetes - NIDDM; jd3 - PSHx: 12:17 Appendectomy; Hernia repair; jd3 - Immunization history:: Adult Immunizations unknown. - Social history:: Smoking status: Patient denies any tobacco usage or history of. - Family history:: not pertinent. ROS: 12:33 Constitutional: Negative for fever, chills, and weight loss, Eyes: Negative for injury, daren pain, redness, and discharge, ENT: Negative for injury, pain, and discharge, Neck: Negative for injury, pain, and swelling, Cardiovascular: Negative for chest pain, palpitations, and edema, Respiratory: Negative for shortness of breath, cough, wheezing, and pleuritic chest pain, Abdomen/GI: Negative for abdominal pain, nausea, vomiting, diarrhea, and constipation, Back: Negative for injury and pain, MS/Extremity: Negative for injury and deformity, Skin: Negative for injury, rash, and discoloration, Psych: Negative for depression, anxiety, suicide ideation, homicidal ideation, and hallucinations, Allergy/Immunology: Negative for hives, rash, and allergies, Endocrine: Negative for neck swelling, polydipsia, polyuria, polyphagia, and marked weight changes, Hematologic/Lymphatic: Negative for swollen nodes, abnormal bleeding, and unusual bruising. 12:33 : Positive for urinary frequency, small amounts. 12:33 MS/extremity: Positive for decreased range of motion, pain, tenderness, of the anterior aspect of right shoulder and posterior aspect of right shoulder. Exam: 12:33 Constitutional: This is a well developed, well nourished patient who is awake, alert, daren and in no acute distress. Head/Face: Normocephalic, atraumatic. Eyes: Pupils equal round and reactive to light, extra-ocular motions intact. Lids and lashes normal. Conjunctiva and sclera are non-icteric and not injected. Cornea within normal limits. Periorbital areas with no swelling, redness, or edema. ENT: Nares patent. No nasal discharge, no septal abnormalities noted. Tympanic membranes are normal and external auditory canals are clear. Oropharynx with no redness, swelling, or masses, exudates, or evidence of obstruction, uvula midline. Mucous membranes moist. Neck: Trachea midline, no thyromegaly or masses palpated, and no cervical lymphadenopathy. Supple, full range of motion without nuchal rigidity, or vertebral point tenderness. No Meningismus. Chest/axilla: Normal chest wall appearance and motion. Nontender with no deformity. No lesions are appreciated. Cardiovascular: Regular rate and rhythm with a normal S1 and S2. No gallops, murmurs, or rubs. Normal PMI, no JVD. No pulse deficits. Respiratory: Lungs have equal breath sounds bilaterally, clear to auscultation and percussion. No rales, rhonchi or wheezes noted. No increased work of breathing, no retractions or nasal flaring. Abdomen/GI: Soft, non-tender, with normal bowel sounds. No distension or tympany. No guarding or rebound. No evidence of tenderness throughout. Back: No spinal tenderness. No costovertebral tenderness. Full range of motion. Skin: Warm, dry with normal turgor. Normal color with no rashes, no lesions, and no evidence of cellulitis. Neuro: Awake and alert, GCS 15, oriented to person, place, time, and situation. Cranial nerves II-XII grossly intact. Motor strength 5/5 in all extremities. Sensory grossly intact. Cerebellar exam normal. Normal gait. Psych: Awake, alert, with orientation to person, place and time. Behavior, mood, and affect are within normal limits. 12:33 : CVA tenderness, is absent, Male external genitalia: normal, Bladder: is normal. 12:52 ECG was reviewed by the Attending Physician. [facility] Vital Signs: 12:17 BP 137 / 87; Pulse 105; Resp 17 S; Temp 97.8(O); Pulse Ox 98% on R/A; Weight 84.37 kg jd3 (R); Height 6 ft. 0 in. (182.88 cm) (R); Pain 10/10; 13:32 BP 129 / 83; Pulse 96; Resp 17 S; Pulse Ox 98% on R/A; jd3 14:30 BP 131 / 84; Pulse 96; Resp 19; Pulse Ox 96% ; bp 15:28 BP 147 / 87; Pulse 98; Resp 17; Pulse Ox 98% ; bp 15:32 BP 147 / 87; Pulse 97; Resp 17 S; Pulse Ox 97% on R/A; jd3 12:17 Body Mass Index 25.23 (84.37 kg, 182.88 cm) jd3 MDM: 12:22 Patient medically screened. [facility] 12:38 Differential diagnosis: DJD, tendonitis, UTI, prostatitis. Data reviewed: vital signs, [facility] nurses notes, lab test result(s), EKG, radiologic studies, plain films. Data interpreted: tobacco weigher: rate is 105 beats/min, rhythm is regular, Pulse oximetry: on room air is 98 %. Test interpretation: by ED physician or midlevel provider: ECG, plain radiologic studies. Counseling: I had a detailed discussion with the patient and/or guardian regarding: the historical points, exam findings, and any diagnostic results supporting the discharge/admit diagnosis, the presence of at least one elevated blood pressure reading (>120/80) during this emergency department visit, lab results, radiology results. 08/05 12:32 Order name: Basic Metabolic Panel [facility] 08/05 12:32 Order name: CBC with Diff [facility] 08/05 12:32 Order name: LFT's [facility] 08/05 12:32 Order name: Magnesium [facility] 08/05 12:32 Order name: NT PRO-BNP [facility] 08/05 12:32 Order name: PT-INR [facility] 08/05 12:32 Order name: Troponin (emerg Dept Use Only) [facility] 08/05 12:32 Order name: Lipase [facility] 08/05 13:16 Order name: Basic Metabolic Panel; Complete Time: 14:19 EDMS 08/05 13:16 Order name: Liver (Hepatic) Function; Complete Time: 14:19 EDMS 08/05 13:16 Order name: Troponin (Emerg Dept Use Only); Complete Time: 14:19 EDMS 08/05 13:16 Order name: NT PRO-BNP; Complete Time: 14:19 EDMS 08/05 13:16 Order name: Magnesium; Complete Time: 14:19 EDMS 08/05 12:32 Order name: XRAY Chest (1 view) [facility] 08/05 12:32 Order name: EKG; Complete Time: 12:33 [facility] 08/05 12:32 Order name: Cardiac monitoring; Complete Time: 12:50 [facility] 08/05 12:32 Order name: EKG - Nurse/Tech; Complete Time: 12:51 [facility] 08/05 13:14 Order name: RAD; Complete Time: 14:19 EDMS 08/05 13:16 Order name: Lipase; Complete Time: 14:19 EDMS 08/05 13:17 Order name: CBC with Automated Diff; Complete Time: 14:19 EDMS 08/05 13:17 Order name: Protime (+INR); Complete Time: 14:19 EDMS 08/05 13:30 Order name: CBC Smear Scan; Complete Time: 14:19 EDMS 08/05 14:35 Order name: Urine Dipstick--Ancillary (enter results) 08/05 12:32 Order name: IV Saline Lock; Complete Time: 12:51 [facility] 08/05 12:32 Order name: Labs collected and sent; Complete Time: 12:51 [facility] 08/05 12:32 Order name: O2 Per Protocol; Complete Time: 12:51 [facility] 08/05 12:32 Order name: O2 Sat Monitoring; Complete Time: 12:50 [facility] EC:52 Rate is 103 beats/min. Rhythm is regular. QRS [place] is Normal. [place] interval is normal. daren QRS interval is normal. QT interval is normal. No Q waves. T waves are Normal. No ST changes noted. Clinical impression: Sinus tachycardia and No evidence of ischemia. Interpreted by me. Reviewed by me. Administered Medications: 12:49 Drug: Ativan 1 mg Route: IVP; Site: left antecubital; jd3 13:40 Follow up: Response: No adverse reaction jd3 12:50 Drug: NS 0.9% 1000 ml Route: IV; Rate: 1 bolus; Site: left antecubital; jd3 15:58 Follow up: IV Status: Completed infusion; IV Intake: 1000ml bp 12:50 Drug: Rocephin 1 grams Route: IV; Rate: per protocol; Site: left antecubital; jd3 13:50 Follow up: Response: No adverse reaction; IV Status: Completed infusion jd3 12:50 Drug: morphine 4 mg Route: IVP; Site: left antecubital; jd3 13:50 Follow up: Response: No adverse reaction; RASS: Alert and Calm (0) jd3 12:50 Drug: Zofran (Ondansetron) 4 mg Route: IVP; Site: left antecubital; jd3 13:50 Follow up: Response: No adverse reaction jd3 14:52 Drug: Magnesium Sulfate 1 grams Route: IVPB; Infused Over: 30 mins; Site: left [facility] antecubital; 15:57 Follow up: IV Status: Completed infusion; IV Intake: 100ml bp Disposition: 08/05/20 14:30 Discharged to Home. Impression: Other chronic pain, Type 2 diabetes mellitus, Hypomagnesemia. - Condition is Stable. - Discharge Instructions: Chronic Pain, Type 2 Diabetes Mellitus, Diagnosis, Adult, Hypomagnesemia, Pain Medicine Instructions, Type 2 Diabetes Mellitus, Diagnosis, Adult, [id number]. - Prescriptions for gabapentin 300 mg Oral capsule - take 1 capsule by ORAL route 2 times per day; 30 capsule. - Medication Reconciliation Form, Thank You Letter, Antibiotic Education, Prescription Opioid Use form. - Follow up: Celeste Kwan DO; When: 2 - 3 days; Reason: Recheck today's complaints, Continuance of care, Re-evaluation by your physician. Follow up: Dino Parry DO; When: 5 - 6 days; Reason: Recheck today's complaints, Re-evaluation by your physician. - Problem is new. - Symptoms have improved. Signatures: Dispatcher [employer] Ethan Lopez MD MD cha Davies, Jonathon, RN RN jClint Vieyra RN RN bp Corrections: (The following items were deleted from the chart) 16:05 14:30 08/05/2020 14:30 Discharged to Home. Impression: Other chronic pain; Type 2 bp diabetes mellitus; Hypomagnesemia. Condition is Stable. Forms are Medication Reconciliation Form, Thank You Letter, Antibiotic Education, Prescription Opioid Use. Follow up: Celeste Kwan; When: 2 - 3 days; Reason: Recheck today's complaints, Continuance of care, Re-evaluation by your physician. Follow up: Dino Parry; When: 5 - 6 days; Reason: Recheck today's complaints, Re-evaluation by your physician. Problem is new. Symptoms have improved. daren
[2020-08-05] MEDS ORDERED: MAGNESIUM SULFATE 1 gm IVPB 1 GM/100 ML BAG IV ONE (14:58)
[2020-08-05 16:10] VITALS: TEMP 97.8
[2020-08-05 16:16] VITALS: BP 147/87
[2020-08-05 16:18] VITALS: O2SAT 97
[2020-08-05 20:03] LABS: Urine Blood TRACE (NEG); Urine Glucose 3+ (NEG); Urine Protein 1+ (NEG); Urine Specific Gravity 1.025 (1.005-1.030)
== END 2020-08-05 16:05 | disposition home or self-care (01) ==
LOC: ER 12:14
DX: G89.29 Other chronic pain (principal); E83.42 Hypomagnesemia; E11.9 Type 2 diabetes mellitus without complications; F41.8 Other specified anxiety disorders; Z91.048 Other nonmedicinal substance allergy status
CPT/HCPCS: 96365; 96367; 96361; 93005; 85025; 80048; 36415; 83735; 85610; 80076; 81003; 84484; 83690; 83880; 71045; 96375; 99284; J3475; J0696; J7030; J2405

== ENCOUNTER 2020-11-06 11:51 | Emergency (ER) | payer OTHER, BC ==
--- OUTSIDE RECORDS SUMMARY | 2020-11-06 12:11 | XMS REPORT | Continuity of Care Document ---
:1955 Author Organization [facility] t Address [address] [place] [address] Dr. Resendiz [address] [place] [id number] Care Team Providers Name Role Phone Unavailable Unavailable Unavailable Problems This patient has no known problems. Allergies, Adverse Reactions, Alerts This patient has no known allergies or adverse reactions. Medications This patient has no known medications. Procedures This patient has no known procedures. Results This patient has no known results.
[2020-11-06] MEDS ORDERED: NA CHLORIDE 0.9% 1,000 ML ONE ×2 (12:56→14:15)
[2020-11-06 13:00] LABS: Absolute Lymphocytes (CBC) 2.2 K/uL (0.7-4.9); Basophils % 0.6 % (0-1.3); Lymphocytes % 21.9 % (15.3-44.8); MPV 9.1 fL (7.6-11.3); RBC Red Blood Cell Count 7.14 M/uL (4.33-5.43)
[2020-11-06 13:02] LABS: Urine Blood Trace-intact (Negative); Urine Glucose 3+ (Negative); Urine Protein 1+ (Negative); Urine Specific Gravity 1.015 (1.005-1.030)
[2020-11-06 13:09] LABS: Hematocrit 60.2 % (39.6-49.0)
[2020-11-06 13:18] LABS: BUN Blood Urea Nitrogen 15 mg/dL (7-18); Bicarbonate 23 mmol/L (21-32); Glucose Level 330 mg/dL (74-106); Sodium Level 133 mmol/L (136-145)
[2020-11-06 13:22] LABS: Potassium 4.3 mmol/L (3.5-5.1)
[2020-11-06 13:39] LABS: Urine Bacteria <20 /HPF (NONE SEEN)
[2020-11-06] MEDS ORDERED: LORAZEPAM 1 MG TABLET ONE (14:15)
--- NOTE | 2020-11-06 14:20 | RAD REPORT ---
EXAM DESCRIPTION: CTAbdomen Pelvis W Contrast - 11/06/2020 2:09 pm CLINICAL HISTORY: Abdominal pain. fever, chills, urinary symptoms COMPARISON: CT ABD PELVIS W CONTRAST dated 01/20/2013 TECHNIQUE: Biphasic CT imaging of the abdomen and pelvis was performed with 100 ml non-ionic IV cont rast. All CT scans are performed using dose optimization technique as appropriate and may include automated exposure control or mA/KV adjustment according to patient size. FINDINGS: The lung bases are clear. The liver, spleen, pancreas, adrenal glands and left kidney are within normal limits. Tiny stone is p resent in the right kidney without hydronephrosis. No bowel obstruction, free air, free fluid or abscess. Sigmoid diverticulosis coli is present. Subtle inflammation in the fat surrounding the left lower quadrant of the sigmoid colon. The appendix is no rmal. No evidence of significant lymphadenopathy. Moderate lumbar degenerative changes. Urinary bladder demonstrates subtle wall thickening. Small bila teral fat containing inguinal hernias, slightly larger on the left. IMPRESSION: Subtle inflammation is seen involving the left lower quadrant sigmoid colon with numerou s diverticula are present. This may represent mild acute sigmoid diverticulitis. Advise followup colo noscopy after appropriate therapy. Subtle urinary bladder wall thickening is identified. Correlation with urinalysis would be suggested to evaluate for possible cystitis.
--- NOTE | 2020-11-06 14:35 | ER ---
Nurse's Notes [facility] Name: John Barrios Age: 65 yrs Sex: Male : 1955 Arrival Date: 11/06/2020 Time: 12:03 Bed 27 Private MD: Diagnosis: Diverticulitis of large intestine without perforation or abscess without bleeding;Dehydration;Cystitis, unspecified Presentation: 11/06 12:07 Chief complaint: EMS states: reports not feeling well and feeling sick for a week now. ca1 Reports trouble urinating and blood in the urine. BGL 222. BP 140/83. HR 120, Denies fever. Coronavirus screen: Client denies travel out of the [place] in the last 14 days. fatigue, muscle pain, Client presents with at least one sign or symptom that may indicate coronavirus-19. Standard/surgical mask placed on the client. Provider contacted for isolation considerations. Ebola Screen: Patient negative for fever greater than or equal to 101.5 degrees Fahrenheit, and additional compatible Ebola Virus Disease symptoms Patient denies exposure to infectious person. Patient denies travel to an Ebola-affected area in the 21 days before illness onset. No symptoms or risks identified at this time. Initial Sepsis Screen: Does the patient meet any 2 criteria? No. Patient's initial sepsis screen is negative. Does the patient have a suspected source of infection? No. Patient's initial sepsis screen is negative. Risk Assessment: Do you want to hurt yourself or someone else? Patient reports no desire to harm self or others. Onset of symptoms was November 06, 2020. 12:07 Method Of Arrival: EMS: [facility] ca1 12:07 Acuity: MELY 3 ca1 Triage Assessment: 12:11 General: Appears in no apparent distress. comfortable, Behavior is calm, cooperative, ca1 appropriate for age, Reports feeling ill for > 3 days, fatigue for >3 days. Pain: Complains of pain in all over Pain currently is 5 out of 10 on a pain scale. Pain began 2-3 days ago. EENT: No signs and/or symptoms were reported regarding the EENT system. Neuro: Level of Consciousness is awake, alert, obeys commands, Oriented to person, place, time, situation. Cardiovascular: Heart tones S1 S2 present Capillary refill < 3 seconds Patient's skin is warm and dry. Rhythm is sinus tachycardia. Respiratory: Airway is patent Respiratory effort is even, unlabored, Respiratory pattern is regular, symmetrical, Breath sounds are clear bilaterally. GI: Abdomen is flat, non-distended, Bowel sounds present X 4 quads. Abd is soft and non tender X 4 quads. : Reports burning with urination, blood in the urine. Derm: Skin is intact, is healthy with good turgor, Skin is pink, warm \T\ dry. Musculoskeletal: Circulation, motion, and sensation intact. Capillary refill < 3 seconds. Historical: - Allergies: 12:11 NKA; ca1 12:11 POISON PETTY; ca1 - Home Meds: 12:11 Hydrocodone-Acetaminophen Oral [Active]; Xanax 1 mg Oral tab as needed [Active]; ca1 - PMHx: 12:11 Anxiety; Depression; Diabetes - NIDDM; ca1 - PSHx: 12:11 Appendectomy; Hernia repair; ca1 - Immunization history:: Client reports having NOT received the Covid vaccine. Flu vaccine is not up to date. - Social history:: Smoking status: Patient denies any tobacco usage or history of. - Family history:: not pertinent. - Hospitalizations: : No recent hospitalization is reported. Screenin:13 Abuse screen: Denies threats or abuse. Denies injuries from another. Nutritional ca1 screening: No deficits noted. Tuberculosis screening: No symptoms or risk factors identified. Fall Risk IV access (20 points). Assessment: 12:13 Reassessment: see triage notes. ca1 14:17 Reassessment: Patient appears in no apparent distress at this time. Patient and/or ca1 family updated on plan of care and expected duration. Pain level reassessed. Patient is alert, oriented x 3, equal unlabored respirations, skin warm/dry/pink. 14:38 Reassessment: Discharge pending completion of IV antibiotics. ca1 15:40 Reassessment: Patient appears in no apparent distress at this time. Patient and/or ca1 family updated on plan of care and expected duration. Pain level reassessed. Patient is alert, oriented x 3, equal unlabored respirations, skin warm/dry/pink. D/C pending completion of ABX. 16:32 Reassessment: Patient appears in no apparent distress at this time. Patient is alert, ca1 oriented x 3, equal unlabored respirations, skin warm/dry/pink. Vital Signs: 12:07 BP 150 / 94; Pulse 117; Resp 17 S; Temp 98.2(O); Pulse Ox 94% on R/A; Weight 81.65 kg ca1 (R); Height 6 ft. 0 in. (182.88 cm) (R); Pain 5/10; 12:47 BP 123 / 87; Pulse 108; Resp 19 S; Pulse Ox 96% on R/A; ca1 14:14 BP 150 / 86; Pulse 93; Resp 16 S; Pulse Ox 96% on R/A; ca1 15:30 BP 143 / 92; Pulse 91; Resp 16 S; Pulse Ox 95% on R/A; ca1 16:32 BP 142 / 85; Pulse 86; Resp 16 S; Pulse Ox 96% on R/A; ca1 12:07 Body Mass Index 24.41 (81.65 kg, 182.88 cm) ca1 ED Course: 12:00 Inserted saline lock: 20 gauge in left forearm, using aseptic technique. Blood sv collected. Flushed left forearm with 5 ml normal saline. 12:03 Patient arrived in ED. sv 12:06 Ingrid Wong, RN is Primary Nurse. ca1 12:10 Triage completed. ca1 12:11 Arm band placed on right wrist. ca1 12:13 Patient has correct armband on for positive identification. Bed in low position. Call ca1 light in reach. Side rails up X2. Pulse ox on. NIBP on. Warm blanket given. 12:16 Sae Ellison MD is Attending Physician. rn 12:38 Initial lab(s) drawn, by la, sent to lab. First set of blood cultures drawn by me. ca1 13:06 Second set of blood cultures drawn by me. ca1 14:08 CT Abd/Pelvis - IV Contrast Only In Process Unspecified. EDMS 14:28 Urine Culture Sent. sv 14:28 Urine Microscopic Only Sent. sv 16:32 No provider procedures requiring assistance completed. IV discontinued, intact, ca1 bleeding controlled, No redness/swelling at site. Pressure dressing applied. Administered Medications: 12:46 Drug: NS 0.9% 1000 ml Route: IV; Rate: 1000 ml; Site: left forearm; ca1 13:30 Follow up: Urine output 150 ml; Response: No adverse reaction; IV Status: Completed ca1 infusion; IV Intake: 1000ml 13:57 Drug: NS 0.9% 1000 ml Route: IV; Rate: 1000 ml; Site: left forearm; ca1 14:55 Follow up: Response: No adverse reaction; IV Status: Completed infusion; IV Intake: ca1 1000ml 13:57 Drug: Ativan (LORazepam) 1 mg Route: PO; ca1 15:39 Follow up: Response: No adverse reaction; Anxiety decreased ca1 14:37 Drug: Cipro (ciprofloxacin) 400 mg Volume: 200 ml; Route: IVPB; Infused Over: 60 mins; ca1 Site: left forearm; 15:39 Follow up: Response: No adverse reaction; IV Status: Completed infusion ca1 15:39 Drug: Flagyl (metroNIDAZOLE) 500 mg Volume: 100 ml; Route: IVPB; Rate: 200 ml/hr; ca1 Infused Over: 30 mins; Site: right antecubital; 16:32 Follow up: Response: No adverse reaction; IV Status: Completed infusion; IV Intake: ca1 100ml Intake: 13:30 IV: 1000ml; Total: 1000ml. ca1 14:55 IV: 1000ml; Total: 2000ml. ca1 16:32 IV: 100ml; Total: 2100ml. ca1 Output: 13:30 Urine: 150ml; Total: 150ml. ca1 Outcome: 14:35 Discharge ordered by . rn 16:32 Discharged to home ambulatory, with significant other. ca1 16:32 Condition: stable 16:32 Discharge instructions given to patient, Instructed on discharge instructions, follow up and referral plans. medication usage, Demonstrated understanding of instructions, follow-up care, medications, Prescriptions given X 2. 16:33 Patient left the ED. ca1 Signatures: Dispatcher [employer] Hermelinda Aguilar RN RN sv Nieto, Roman, MD MD rn Acob, Cheryl, RN RN ca1
--- NOTE | 2020-11-06 14:36 | EDPHYS ---
Physician Documentation [facility] Name: John Barrios Age: 65 yrs Sex: Male : 1955 Arrival Date: 11/06/2020 Time: 12:03 Bed 27 Private MD: ED Physician Sae Ellison HPI: 11/06 13:20 This 65 yrs old Male presents to ER via EMS with complaints of Not feeling rn well, Urinary Problem. 13:20 The patient presents with urinary symptoms, dysuria. Onset: The symptoms/episode rn began/occurred 1 week(s) ago. Modifying factors: The symptoms are alleviated by nothing, the symptoms are aggravated by urinating. Associated signs and symptoms: Pertinent negatives: abdominal pain, constipation, diarrhea, fever, hematuria, nausea, vomiting. Severity of symptoms: At their worst the symptoms were mild, in the emergency department the symptoms are unchanged. The patient has not experienced similar symptoms in the past. The patient has not recently seen a physician. Reports noticed small "speck of blood in urine" last week, since then noticed a little dysuria, no more blood, feels like has UTI. Reports fatigue and malaise. No fever. No abd pain. No cough/congestion/runny nose/sore throat/sob. NO diarrhea. . Historical: - Allergies: 12:11 NKA; ca1 12:11 POISON PETTY; ca1 - Home Meds: 12:11 Hydrocodone-Acetaminophen Oral [Active]; Xanax 1 mg Oral tab as needed [Active]; ca1 - PMHx: 12:11 Anxiety; Depression; Diabetes - NIDDM; ca1 - PSHx: 12:11 Appendectomy; Hernia repair; ca1 - Immunization history:: Client reports having NOT received the Covid vaccine. Flu vaccine is not up to date. - Social history:: Smoking status: Patient denies any tobacco usage or history of. - Family history:: not pertinent. - Hospitalizations: : No recent hospitalization is reported. ROS: 13:20 Constitutional: Negative for fever, chills, and weight loss, Eyes: Negative for injury, rn pain, redness, and discharge, Neck: Negative for injury, pain, and swelling, Cardiovascular: Negative for chest pain, palpitations, and edema, Respiratory: Negative for shortness of breath, cough, wheezing, and pleuritic chest pain, Abdomen/GI: Negative for abdominal pain, nausea, vomiting, diarrhea, and constipation, Back: Negative for injury and pain, : + dysuria, no current bleeding MS/Extremity: Negative for injury and deformity, Skin: Negative for injury, rash, and discoloration, Neuro: Negative for headache, numbness, tingling, and seizure. Exam: 13:20 Constitutional: This is a well developed, well nourished patient who is awake, alert, rn and in no acute distress. Head/Face: Normocephalic, atraumatic. Eyes: Periorbital areas with no swelling, redness, or edema. ENT: dry MM Cardiovascular: Tachycardic, regular Respiratory: No increased work of breathing, no retractions or nasal flaring. Abdomen/GI: soft, non-tender Skin: Warm, dry MS/ Extremity: Pulses equal, no cyanosis. Neuro: Awake and alert, GCS 15 Vital Signs: 12:07 BP 150 / 94; Pulse 117; Resp 17 S; Temp 98.2(O); Pulse Ox 94% on R/A; Weight 81.65 kg ca1 (R); Height 6 ft. 0 in. (182.88 cm) (R); Pain 5/10; 12:47 BP 123 / 87; Pulse 108; Resp 19 S; Pulse Ox 96% on R/A; ca1 14:14 BP 150 / 86; Pulse 93; Resp 16 S; Pulse Ox 96% on R/A; ca1 15:30 BP 143 / 92; Pulse 91; Resp 16 S; Pulse Ox 95% on R/A; ca1 16:32 BP 142 / 85; Pulse 86; Resp 16 S; Pulse Ox 96% on R/A; ca1 12:07 Body Mass Index 24.41 (81.65 kg, 182.88 cm) ca1 MDM: 12:17 Patient medically screened. rn 14:33 Differential diagnosis: nonspecific abdominal pain, UTI, urinary retention, rn prostatitis, diverticulitis, viral syndrome, UTI. Data reviewed: vital signs, nurses notes, lab test result(s), radiologic studies, CT scan, and as a result, I will discharge patient. Counseling: I had a detailed discussion with the patient and/or guardian regarding: the historical points, exam findings, and any diagnostic results supporting the discharge/admit diagnosis, lab results, radiology results, the need for outpatient follow up, to return to the emergency department if symptoms worsen or persist or if there are any questions or concerns that arise at home. Response to treatment: the patient's symptoms have markedly improved after treatment, and as a result, I will discharge patient. Special discussion: I discussed with the patient/guardian in detail that at this point there is no indication for admission to the hospital. It is understood, however, that if the symptoms persist or worsen the patient needs to return immediately for re-evaluation. ED course: CT shows mild diverticulitis and questionable UTI, UA without infection, will dc home with abx and instructions for rehydration as more dehydrated than anything with hemoconcentration. . 11/06 12:13 Order name: Glucose, Ancillary Testing; Complete Time: 12:17 [facility] 11/06 12:18 Order name: Urine Culture 11/06 12:18 Order name: Urine Microscopic Only 11/06 12:19 Order name: Urine Culture [facility] 11/06 12:19 Order name: Urine Microscopic Only; Complete Time: 13:51 [facility] 11/06 12:24 Order name: CBC with Diff; Complete Time: 13:51 11/06 12:24 Order name: Basic Metabolic Panel; Complete Time: 13:51 11/06 12:24 Order name: Blood Culture Adult (2) 11/06 12:24 Order name: Procalcitonin; Complete Time: 13:51 11/06 12:24 Order name: Lactate; Complete Time: 13:51 11/06 12:24 Order name: CT Abd/Pelvis - IV Contrast Only; Complete Time: 14:22 11/06 13:01 Order name: Urine Dipstick-Ancillary; Complete Time: 13:51 [facility] 11/06 12:18 Order name: Urine Dipstick-Ancillary (obtain specimen); Complete Time: 13:02 11/06 12:24 Order name: IV Start; Complete Time: 12:28 rn 11/06 12:25 Order name: EKG; Complete Time: 12:26 11/06 12:25 Order name: EKG - Nurse/Tech; Complete Time: 13:12 rn Administered Medications: 12:46 Drug: NS 0.9% 1000 ml Route: IV; Rate: 1000 ml; Site: left forearm; ca1 13:30 Follow up: Urine output 150 ml; Response: No adverse reaction; IV Status: Completed ca1 infusion; IV Intake: 1000ml 13:57 Drug: NS 0.9% 1000 ml Route: IV; Rate: 1000 ml; Site: left forearm; ca1 14:55 Follow up: Response: No adverse reaction; IV Status: Completed infusion; IV Intake: ca1 1000ml 13:57 Drug: Ativan (LORazepam) 1 mg Route: PO; ca1 15:39 Follow up: Response: No adverse reaction; Anxiety decreased ca1 14:37 Drug: Cipro (ciprofloxacin) 400 mg Volume: 200 ml; Route: IVPB; Infused Over: 60 mins; ca1 Site: left forearm; 15:39 Follow up: Response: No adverse reaction; IV Status: Completed infusion ca1 15:39 Drug: Flagyl (metroNIDAZOLE) 500 mg Volume: 100 ml; Route: IVPB; Rate: 200 ml/hr; ca1 Infused Over: 30 mins; Site: right antecubital; 16:32 Follow up: Response: No adverse reaction; IV Status: Completed infusion; IV Intake: ca1 100ml Disposition: 11/06/20 14:35 Discharged to Home. Impression: Diverticulitis of large intestine without perforation or abscess without bleeding, Dehydration, Cystitis, unspecified. - Condition is Stable. - Discharge Instructions: Dehydration, Adult, Diverticulitis. - Prescriptions for Flagyl 500 mg Oral Tablet - take 1 tablet by ORAL route every 8 hours for 10 days; 30 tablet. Cipro 500 mg Oral Tablet - take 1 tablet by ORAL route every 12 hours for 10 days; 20 tablet. - Medication Reconciliation Form, Thank You Letter, Antibiotic Education, Prescription Opioid Use form. - Follow up: Private Physician; When: As needed; Reason: Recheck today's complaints, Re-evaluation by your physician. - Problem is new. - Symptoms have improved. Signatures: Dispatcher [employer] EDSae Mcconnell MD MD rn Acob, ANA LUISA Quintero RN ca1 Corrections: (The following items were deleted from the chart) 16:33 14:35 11/06/2020 14:35 Discharged to Home. Impression: Diverticulitis of large ca1 intestine without perforation or abscess without bleeding; Dehydration; Cystitis, unspecified. Condition is Stable. Forms are Medication Reconciliation Form, Thank You Letter, Antibiotic Education, Prescription Opioid Use. Follow up: Private Physician; When: As needed; Reason: Recheck today's complaints, Re-evaluation by your physician. Problem is new. Symptoms have improved. rn
[2020-11-06] MEDS ORDERED: CIPROFLOXACIN 400mg IV 400 MG/200 ML BAG IV ONE (14:53)
[2020-11-06] MEDS ORDERED: METRONIDAZOLE 500mg IVPB 500 MG/100 ML BAG IV ONE (14:53)
[2020-11-06 16:39] VITALS: TEMP 98.2
[2020-11-06 16:45] VITALS: BP 142/85; O2SAT 96
--- NOTE | 2020-11-08 07:30 | EKG ---
Test Date: 2020-11-06 Test Time: 13:10:02 Financial Service Representative: VAL MEASUREMENT RESULTS: Intervals: Rate: 101 DC: 164 QRSD: 74 QT: 318 QTc: 412 [place]: P: 59 DC: 164 QRS: -21 T: 66 INTERPRETIVE STATEMENTS: Sinus tachycardia Moderate voltage criteria for LVH, may be normal variant Borderline ECG Compared to ECG 08/05/2020 12:39:41 No significant changes Electronically Signed On 11-08-20 07:26:53 CDT by Chris Day
== END 2020-11-06 16:33 | disposition home or self-care (01) ==
LOC: ER 11:51
DX: K57.32 Diverticulitis of large intestine without perforation or abscess without bleeding (principal); N30.90 Cystitis, unspecified without hematuria; E86.0 Dehydration; E11.9 Type 2 diabetes mellitus without complications; F41.9 Anxiety disorder, unspecified; F32.9 Major depressive disorder, single episode, unspecified
CPT/HCPCS: 93005; 87040 ×2; 87088; 85025; 87086; 80048; 36415; 82947; 83605; 84145; 74177; 99285; Q9967; J7030 ×2; J0744; 81003; 81015

== ENCOUNTER 2021-10-09 08:49 | Emergency (ER) | payer OTHER, BC ==
--- OUTSIDE RECORDS SUMMARY | 2021-10-09 08:51 | XMS REPORT | Continuity of Care Document ---
:1955 Author Organization [facility] t Address [address] [place] [address] Dr. Resendiz [address] [place] [id number] Care Team Providers Name Role Phone Unavailable Unavailable Unavailable Problems This patient has no known problems. Allergies, Adverse Reactions, Alerts This patient has no known allergies or adverse reactions. Medications This patient has no known medications. Procedures This patient has no known procedures. Results This patient has no known results.
[2021-10-09] MEDS ORDERED: NA CHLORIDE 0.9% 500 ML ONE (09:38)
[2021-10-09 09:45] LABS: Urine Blood Trace-intact (Negative); Urine Glucose 3+ (Negative); Urine Protein 1+ (Negative); Urine Specific Gravity 1.025 (1.005-1.030)
[2021-10-09 09:55] LABS: Absolute Lymphocytes (CBC) 2.6 K/uL (0.7-4.9); Hematocrit 43.1 % (39.6-49.0); Lymphocytes % 29.2 % (15.3-44.8); MPV 7.9 fL (7.6-11.3); RBC Red Blood Cell Count 5.03 M/uL (4.33-5.43)
[2021-10-09 10:11] LABS: Albumin 3.1 g/dL (3.4-5.0); Bilirubin Total 0.4 mg/dL (0.2-1.0); Protein, Total 6.6 g/dL (6.4-8.2)
--- NOTE | 2021-10-09 11:32 | EDPHYS ---
Physician Documentation [facility] Name: John Barrios Age: 66 yrs Sex: Male : 1955 Arrival Date: 10/09/2021 Time: 08:53 Bed 2 Private MD: ED Physician Jameel Wright HPI: 10/09 09:48 This 66 yrs old Male presents to ER via EMS with complaints of General Weakness, kdr Urinary Problem. 09:48 Patient presents to the ED with generalized complaints including possible urinary kdr retention general poor p.o. intake general malaise and weakness. He states that he this happens to him periodically maybe 3-4 times a year. Over the last few years she has had fairly frequent bouts of the same feeling. This is his first visit in 2021 for these kind of symptoms. He denies any other symptoms including chest pain shortness of breath. Patient has had some very mild abdominal pain but states that today that resolved when he started to get some IV fluid in it. Otherwise he has no focal complaint. Onset: The symptoms/episode began/occurred gradually, 4 day(s) ago. Severity of symptoms: At their worst the symptoms were moderate in the emergency department the symptoms are unchanged. The patient has experienced similar episodes in the past, multiple times. The patient has not recently seen a physician. Historical: - Allergies: 08:56 NKA; ll1 08:56 POISON PETTY; ll1 - PMHx: 08:56 Anxiety; Depression; Diabetes - NIDDM; ll1 - PSHx: 08:56 None; ll1 - Immunization history:: Client reports receiving the 2nd dose of the Covid vaccine. - Social history:: Smoking status: Patient denies any tobacco usage or history of. ROS: 09:48 Constitutional: Negative for fever, chills, and weight loss, Eyes: Negative for injury, kdr pain, redness, and discharge, Neck: Negative for injury, pain, and swelling, Cardiovascular: Negative for chest pain, palpitations, and edema, Respiratory: Negative for shortness of breath, cough, wheezing, and pleuritic chest pain, Back: Negative for injury and pain, : Negative for injury, bleeding, discharge, and swelling, MS/Extremity: Negative for injury and deformity, Skin: Negative for injury, rash, and discoloration, Neuro: Negative for headache, weakness, numbness, tingling, and seizure activity. Psych: Negative for depression, anxiety, suicide ideation, homicidal ideation, and hallucinations, Allergy/Immunology: Negative for hives, rash, and allergies, Endocrine: Negative for neck swelling, polydipsia, polyuria, polyphagia, and marked weight changes, Hematologic/Lymphatic: Negative for swollen nodes, abnormal bleeding, and unusual bruising. 09:48 Abdomen/GI: Positive for abdominal pain, nausea, Negative for vomiting, diarrhea, constipation, abdominal cramps, abdominal distension, anorexia, dysphagia, hematemesis, black/tarry stool, rectal pain, rectal bleeding, bowel incontinence, Patient does have a history of various bowel diseases including Crohn's and irritable bowel syndrome.. Exam: 09:48 Constitutional: This is a well developed, well nourished patient who is awake, alert, kdr and in no acute distress. Head/Face: Normocephalic, atraumatic. Eyes: Pupils equal round and reactive to light, extra-ocular motions intact. Lids and lashes normal. Conjunctiva and sclera are non-icteric and not injected. Cornea within normal limits. Periorbital areas with no swelling, redness, or edema. Neck: Trachea midline, no thyromegaly or masses palpated, and no cervical lymphadenopathy. Supple, full range of motion without nuchal rigidity, or vertebral point tenderness. No Meningismus. Chest/axilla: Normal chest wall appearance and motion. Nontender with no deformity. No lesions are appreciated. Cardiovascular: Regular rate and rhythm with a normal S1 and S2. No gallops, murmurs, or rubs. Normal PMI, no JVD. No pulse deficits. Respiratory: Lungs have equal breath sounds bilaterally, clear to auscultation and percussion. No rales, rhonchi or wheezes noted. No increased work of breathing, no retractions or nasal flaring. Abdomen/GI: Soft, non-tender, with normal bowel sounds. No distension or tympany. No guarding or rebound. No evidence of tenderness throughout. Back: No spinal tenderness. No costovertebral tenderness. Full range of motion. Skin: Warm, dry with normal turgor. Normal color with no rashes, no lesions, and no evidence of cellulitis. MS/ Extremity: Pulses equal, no cyanosis. Neurovascular intact. Full, normal range of motion. Neuro: Awake and alert, GCS 15, oriented to person, place, time, and situation. Cranial nerves II-XII grossly intact. Motor strength 5/5 in all extremities. Sensory grossly intact. Cerebellar exam normal. Normal gait. Psych: Awake, alert, with orientation to person, place and time. Behavior, mood, and affect are within normal limits. Vital Signs: 08:54 BP 114 / 80; Pulse 94; Resp 17; Temp 97.7; Pulse Ox 97% ; Weight 81.65 kg; Height 6 ft. ll1 0 in. (182.88 cm); Pain 2/10; 10:00 BP 140 / 83; Pulse 93; Resp 17; Pulse Ox 94% ; ll1 10:46 BP 148 / 89; Pulse 91; Resp 16; Pulse Ox 94% ; ll1 11:07 BP 145 / 84; ll1 11:41 BP 136 / 83; Pulse 86; Resp 16; Pulse Ox 96% ; Pain 0/10; ll1 08:54 Body Mass Index 24.41 (81.65 kg, 182.88 cm) ll1 MDM: 11:32 Patient medically screened. kdr 11:34 Data reviewed: vital signs, nurses notes, lab test result(s), radiologic studies. kdr Counseling: I had a detailed discussion with the patient and/or guardian regarding: the historical points, exam findings, and any diagnostic results supporting the discharge/admit diagnosis, lab results, radiology results, the need for outpatient follow up. ED course: Discussed with the patient his need for better glucose control and the potential for endorgan damage. On a prior visit he had had some diverticulitis and was put on antibiotics. He had some concern for recurrence of that at this time however his abdominal exam was negative. Initially I had not ordered a CT of his abdomen due to the lack of symptoms. On discussion with the patient he had concerned since he had minimal symptoms he claimed on the first time. I offered to repeat the scan and he initially accepted but then declined and was discharged without further evaluation.. 10/09 09:28 Order name: CBC with Diff; Complete Time: 10:13 kdr 10/09 09:28 Order name: CMP; Complete Time: 10: kdr 10/09 08:28 Order name: Lipase; Complete Time: : kdr 10/09 08:28 Order name: CPK; Complete Time: 10:13 kdr 10/09 09:30 Order name: Influenza Screen (a \T\ B); Complete Time: 11:10 bd 10/09 08:54 Order name: Bladder Scanner; Complete Time: 09:03 kdr 10/09 09:28 Order name: IV Saline Lock; Complete Time: 09:29 kdr 10/09 09:28 Order name: Labs collected and sent; Complete Time: 09:29 kdr 10/09 09:28 Order name: Urine Dipstick-Ancillary (obtain specimen); Complete Time: 09:59 kdr 10/09 09:45 Order name: Urine Dipstick-Ancillary; Complete Time: 10:13 EDMS Administered Medications: 09:58 Not Given (changed orderr): NS 0.9% 1000 ml IV at 1 bolus Per protocol; 1000 mL bolus ll1 09:59 Drug: NS 0.9% 500 ml Route: IV; Rate: bolus; Site: left antecubital; ll1 10:55 Follow up: Response: No adverse reaction; IV Status: Completed infusion; IV Intake: ll1 500ml Disposition Summary: 10/09/21 11:32 Discharge Ordered Location: Home kdr Problem: new kdr Symptoms: have improved kdr Condition: Stable kdr Diagnosis - Hyperglycemia, unspecified kdr - Weakness kdr - Dehydration kdr Followup: kdr - With: Private Physician - When: 2 - 3 days - Reason: If symptoms return, Further diagnostic work-up, Recheck today's complaints, Continuance of care, Re-evaluation by your physician Discharge Instructions: - Discharge Summary Sheet kdr - Fatigue kdr - Blood Glucose Monitoring, Adult kdr - Weakness, [id number] kdr - Hyperglycemia, [id number] kdr Forms: - Medication Reconciliation Form kdr - Thank You Letter kdr - Family Work Release iw Signatures: Dispatcher [employer] EDMS Jameel Wright MD MD kdr Melissa Russell RN RN ll1 Corrections: (The following items were deleted from the chart) 11:35 11:24 Abdomen Pelvis W Con+CT.RAD.BRZ ordered. EDMS EDMS
--- NOTE | 2021-10-09 11:32 | ER ---
Nurse's Notes [facility] Name: John Barrios Age: 66 yrs Sex: Male : 1955 Arrival Date: 10/09/2021 Time: 08:53 Bed 2 Private MD: Diagnosis: Hyperglycemia, unspecified;Weakness;Dehydration Presentation: 10/09 08:54 Chief complaint: Patient states: Not feeling well for 4 days. No appetite. Denies ll1 N/V/D. Problem urinating as much lately. No fever. Coronavirus screen: Vaccine status: Patient reports receiving the 2nd dose of the covid vaccine. Client denies travel out of the [place] in the last 14 days. At this time, the client does not indicate any symptoms associated with coronavirus-19. Ebola Screen: Patient denies travel to an Ebola-affected area in the 21 days before illness onset. Initial Sepsis Screen: Does the patient meet any 2 criteria? HR > 90 bpm. No. Patient's initial sepsis screen is negative. Does the patient have a suspected source of infection? No. Patient's initial sepsis screen is negative. Risk Assessment: Do you want to hurt yourself or someone else? Patient reports no desire to harm self or others. Onset of symptoms was October 06, 2021. 08:54 Method Of Arrival: EMS: [facility] ll1 08:54 Acuity: MELY 3 ll1 Triage Assessment: 08:57 General: Appears uncomfortable, ill, Behavior is cooperative, appropriate for age. ll1 Pain: Complains of pain in abdomen Quality of pain is described as aching. Neuro: Reports weakness. : Reports inability to void, less urinary output than normal. Musculoskeletal: Reports weakness in all over. Historical: - Allergies: 08:56 NKA; ll1 08:56 POISON PETTY; ll1 - PMHx: 08:56 Anxiety; Depression; Diabetes - NIDDM; ll1 - PSHx: 08:56 None; ll1 - Immunization history:: Client reports receiving the 2nd dose of the Covid vaccine. - Social history:: Smoking status: Patient denies any tobacco usage or history of. Screenin:47 Abuse screen: Denies threats or abuse. Nutritional screening: No deficits noted. ll1 Tuberculosis screening: No symptoms or risk factors identified. Fall Risk IV access (20 points). Total Pruitt Fall Scale indicates No Risk (0-24 pts). Assessment: 10:00 Reassessment: No changes from previously documented assessment. Patient and/or family ll1 updated on plan of care and expected duration. Pain level reassessed. Patient is alert, oriented x 3, equal unlabored respirations, skin warm/dry/pink. 10:54 Reassessment: No changes from previously documented assessment. Patient and/or family ll1 updated on plan of care and expected duration. Pain level reassessed. Patient is alert, oriented x 3, equal unlabored respirations, skin warm/dry/pink. gait steady to restroom. 11:31 Reassessment: No changes from previously documented assessment. Patient and/or family ll1 updated on plan of care and expected duration. Pain level reassessed. Patient is alert, oriented x 3, equal unlabored respirations, skin warm/dry/pink. ready to go home now Patient states feeling better. Vital Signs: 08:54 BP 114 / 80; Pulse 94; Resp 17; Temp 97.7; Pulse Ox 97% ; Weight 81.65 kg; Height 6 ft. ll1 0 in. (182.88 cm); Pain 2/10; 10:00 BP 140 / 83; Pulse 93; Resp 17; Pulse Ox 94% ; ll1 10:46 BP 148 / 89; Pulse 91; Resp 16; Pulse Ox 94% ; ll1 11:07 BP 145 / 84; ll1 11:41 BP 136 / 83; Pulse 86; Resp 16; Pulse Ox 96% ; Pain 0/10; ll1 08:54 Body Mass Index 24.41 (81.65 kg, 182.88 cm) ll1 ED Course: 08:53 Patient arrived in ED. ll1 08:53 Jameel Wright MD is Attending Physician. kdr 08:56 Triage completed. ll1 08:56 Arm band placed on Patient placed in an exam room, on a stretcher. ll1 08:58 Melissa Russell RN is Primary Nurse. ll1 08:58 Maintain EMS IV. Dressing intact. Good blood return noted. Site clean \T\ dry. Gauge \T\ ll 1 site: 20 L AC. 09:16 Notified ED physician of other bladder scan 170 ml. ll1 10:48 Patient has correct armband on for positive identification. Bed in low position. Call ll1 light in reach. Side rails up X 1. Client placed on continuous cardiac and pulse oximetry monitoring. NIBP monitoring applied. 11:42 IV discontinued, intact, bleeding controlled, No redness/swelling at site. Pressure ll1 dressing applied. 11:42 No provider procedures requiring assistance completed. ll1 Administered Medications: 09:58 Not Given (changed orderr): NS 0.9% 1000 ml IV at 1 bolus Per protocol; 1000 mL bolus ll1 09:59 Drug: NS 0.9% 500 ml Route: IV; Rate: bolus; Site: left antecubital; ll1 10:55 Follow up: Response: No adverse reaction; IV Status: Completed infusion; IV Intake: ll1 500ml Intake: 10:55 IV: 500ml; Total: 500ml. ll1 Outcome: 11:32 Discharge ordered by . kdr 11:42 Discharged to home ambulatory. ll1 11:42 Condition: stable 11:42 Discharge instructions given to patient, family, Instructed on discharge instructions, follow up and referral plans. Demonstrated understanding of instructions, follow-up care. 11:43 Patient left the ED. 1 Signatures: Jameel Wright MD MD kdr Melissa Russell RN RN 1
[2021-10-09 11:47] VITALS: TEMP 97.7
[2021-10-09 11:52] VITALS: BP 136/83; O2SAT 96
== END 2021-10-09 11:43 | disposition home or self-care (01) ==
LOC: ER 08:49
DX: E11.65 Type 2 diabetes mellitus with hyperglycemia (principal); E86.0 Dehydration; Z91.048 Other nonmedicinal substance allergy status
CPT/HCPCS: 85025; 36415; 82550; 81003; 83690; 80053; 87804 ×2; 96360; 99283; J7040

== ENCOUNTER 2023-03-30 10:02 | Emergency (ER) | payer BC, OTHER ==
--- OUTSIDE RECORDS SUMMARY | 2023-03-30 10:05 | XMS REPORT | Continuity of Care Document ---
:1955 Author Organization [facility] t Address [address] [address] Care Team Providers Name Role Phone Unavailable Unavailable Unavailable Problems This patient has no known problems. Allergies, Adverse Reactions, Alerts This patient has no known allergies or adverse reactions. Medications This patient has no known medications. Procedures This patient has no known procedures. Results This patient has no known results.
[2023-03-30 10:37] LABS: Absolute Lymphocytes (CBC) 2.7 K/uL (0.7-4.9); Hematocrit 44.2 % (39.6-49.0); Lymphocytes % 27.3 % (15.3-44.8); MCV 86.3 fL (80-100); MPV 7.1 fL (7.6-11.3); Platelets 268 thou/uL (152-406); RBC Red Blood Cell Count 5.12 M/uL (4.33-5.43)
[2023-03-30] MEDS ORDERED: hydrOXYzine HCL 25 MG TAB ONE (10:48)
[2023-03-30] MEDS ORDERED: KETOROLAC 30 MG/ML INJ ONE (10:49)
[2023-03-30] MEDS ORDERED: NA CHLORIDE 0.9% 1,000 ML ONE (10:49)
[2023-03-30] MEDS ORDERED: ONDANSETRON 4 MG/2 ML VIAL ONE (10:49)
[2023-03-30 10:54] LABS: Albumin 3.2 g/dL (3.4-5.0); Bilirubin Total 0.5 mg/dL (0.2-1.0); Potassium 4.5 mEq/L (3.5-5.1); Protein, Total 6.8 g/dL (6.4-8.2)
--- NOTE | 2023-03-30 12:32 | RAD REPORT ---
EXAM DESCRIPTION: CT - Abdomen Pelvis W Contrast - 03/30/2023 12:12 pm CLINICAL HISTORY: Abdominal pain COMPARISON: January 2023 and 2018 TECHNIQUE: Computed axial tomography of the abdomen pelvis was obtained. 100 cc Isovue-300 was admin istered intravenously. Oral contrast was not requested which limits evaluation of bowel and appendix All CT scans are performed using dose optimization technique as appropriate and may include automated exposure control or mA/KV adjustment according to patient size. FINDINGS: The liver, spleen, pancreas, and left kidney appear unremarkable. Tiny nonobstructing right renal calculi Small adrenal nodules unchanged 2019 likely adenomas. There is no evidence of diverticulitis. Normal appendix Moderate amount of stool within the colon. Small left inguinal hernia Prostate gland mildly to moderately enlarged. Bladder wall thickening IMPRESSION: Moderate amount stool within the colon. Bladder wall thickening may be related to inflammation or chronic outlet obstruction
--- NOTE | 2023-03-30 12:36 | ER ---
Nurse's Notes [facility] Name: John Barrios Age: 67 yrs Sex: Male : 1955 Arrival Date: 03/30/2023 Time: 10:02 Bed 14 Private MD: Diagnosis: Constipation Presentation: 03/30 10:13 Chief complaint: Patient states: constipation for 10 days, nausea, abdominal pain. ld1 Coronavirus screen: Client denies travel out of the [place] in the last 14 days. At this time, the client does not indicate any symptoms associated with coronavirus-19. Ebola Screen: Patient negative for fever greater than or equal to 101.5 degrees Fahrenheit, and additional compatible Ebola Virus Disease symptoms Patient denies exposure to infectious person. Patient denies travel to an Ebola-affected area in the 21 days before illness onset. No symptoms or risks identified at this time. Initial Sepsis Screen: Does the patient meet any 2 criteria? No. Patient's initial sepsis screen is negative. Does the patient have a suspected source of infection? No. Patient's initial sepsis screen is negative. Risk Assessment: Do you want to hurt yourself or someone else? Patient reports no desire to harm self or others. Onset of symptoms was March 20, 2023 at 07:00. 10:13 Method Of Arrival: EMS: [facility] ld1 10:13 Acuity: MELY 3 ld1 Triage Assessment: 10:15 General: Appears uncomfortable, Behavior is calm, cooperative, appropriate for age. ld1 Pain: Complains of pain in abdomen Pain currently is 8 out of 10 on a pain scale. Neuro: Level of Consciousness is awake, alert, obeys commands, Oriented to person, place, time, situation, Appropriate for age. Cardiovascular: Capillary refill < 3 seconds Patient's skin is warm and dry. Respiratory: Airway is patent Respiratory effort is even, unlabored, Respiratory pattern is regular, symmetrical. GI: Abdomen is round Reports lower abdominal pain, upper abdominal pain, constipation, nausea. : No signs and/or symptoms were reported regarding the genitourinary system. Derm: No signs and/or symptoms reported regarding the dermatologic system. Musculoskeletal: No signs and/or symptoms reported regarding the musculoskeletal system. Historical: - Allergies: 10:15 NKA; ld1 10:15 POISON PETTY; ld1 - PMHx: 10:15 Anxiety; Chronic pain; Depression; Diabetes - NIDDM; ld1 - PSHx: 10:15 None; ld1 - Immunization history:: Adult Immunizations up to date. - Social history:: Smoking status: Patient denies any tobacco usage or history of. Patient/guardian denies using alcohol. Screenin:40 [facility] ED Fall Risk Assessment (Adult) History of falling in the last 3 months, tm6 including since admission No falls in past 3 months (0 pts). Abuse screen: Denies threats or abuse. Denies injuries from another. Nutritional screening: No deficits noted. Tuberculosis screening: No symptoms or risk factors identified. Assessment: 10:17 Reassessment: Patient appears in no apparent distress at this time. see triage ld1 assessment. 11:22 Reassessment: Patient appears in no apparent distress at this time. Patient and/or tm6 family updated on plan of care and expected duration. Pain level reassessed. 12:25 Reassessment: Patient appears in no apparent distress at this time. No changes from tm6 previously documented assessment. Patient and/or family updated on plan of care and expected duration. Pain level reassessed. 12:40 GI: Bowel sounds Abd is soft and non tender X 4 quads. tm6 Vital Signs: 10:13 BP 143 / 83; Pulse 94; Resp 20; Temp 98.6(TE); Pulse Ox 97% on R/A; Weight 81.65 kg; ld1 Height 6 ft. 0 in. ; Pain 7/10; 11:21 BP 119 / 71; Pulse 85; Resp 19; Pulse Ox 98% ; tm6 12:25 BP 151 / 85; Pulse 92; Resp 17; Pulse Ox 97% on R/A; Pain 0/10; tm6 10:13 Body Mass Index 24.41 (81.65 kg, 182.88 cm) ld1 10:13 Pain Scale: Adult ld1 12:25 Pain Scale: Adult tm6 ED Course: 10:12 Patient arrived in ED. ld1 10:12 Sherif Isbell MD is Attending Physician. ec2 10:12 Adrienne Ferrera, ANA LUISA is Primary Nurse. ld1 10:15 Triage completed. ld1 10:15 Arm band placed on right wrist. ld1 10:31 No provider procedures requiring assistance completed. Inserted saline lock: 20 gauge tm6 in left antecubital area, using aseptic technique. 11:24 Placed in gown. Bed in low position. Call light in reach. Side rails up X2. Noise tm6 minimized. Warm blanket given. 12:14 CT Abd/Pelvis - IV Contrast Only In Process Unspecified. EDMS 12:39 Provided Education on: medication. tm6 12:39 IV discontinued, intact, bleeding controlled. tm6 Administered Medications: 10:41 Drug: NS 0.9% IV 1000 ml IV at 1 bolus Per protocol; 1000 mL bolus Route: IV; Rate: 1 ld1 bolus; Site: left antecubital; 10:41 Drug: hydrOXYzine PO 50 mg PO once Route: PO; ld1 10:42 Drug: TORadol - Ketorolac IVP 15 mg IVP once Route: IVP; Site: left antecubital; ld1 10:42 Drug: Ondansetron IVP 4 mg IVP once; over 2 minutes Route: IVP; Site: left antecubital; ld1 Medication: 12:40 VIS not applicable for this client. tm6 Outcome: 12:35 Discharge ordered by . ec2 12:39 Discharged to home ambulatory, tm6 12:39 Condition: stable 12:39 Discharge instructions given to patient, Instructed on discharge instructions, follow up and referral plans. medication usage, Demonstrated understanding of instructions, follow-up care, medications, Prescriptions given X 1, 12:46 Patient left the ED. tm6 Signatures: Dispatcher [employer] EDAdrienne Cruz RN RN ld1 Sherif Isbell MD MD ec2 Krys Nicholson RN RN tm6
--- NOTE | 2023-03-30 12:36 | EDPHYS ---
Physician Documentation [facility] Name: John Barrios Age: 67 yrs Sex: Male : 1955 Arrival Date: 03/30/2023 Time: 10:02 Bed 14 Private MD: ED Physician Sherif Isbell HPI: 03/30 10:21 This 67 yrs old Male presents to ER via EMS with complaints of Constipation, ec2 Abdominal Pain. 10:21 Patient arrives today due to concern for abdominal pain as well as constipation and ec2 decreased p.o. intake. Patient reports that he has not had a bowel movement approximately 10 days. States that he feels a bit distended, states that he does not have an appetite. Patient reports previous hernia repair, otherwise no abdominal surgery. Reports he feels nauseous without vomiting.. Historical: - Allergies: 10:15 NKA; ld1 10:15 POISON PETTY; ld1 - PMHx: 10:15 Anxiety; Chronic pain; Depression; Diabetes - NIDDM; ld1 - PSHx: 10:15 None; ld1 - Immunization history:: Adult Immunizations up to date. - Social history:: Smoking status: Patient denies any tobacco usage or history of. Patient/guardian denies using alcohol. ROS: 10:21 Constitutional: as per hpi ec2 Exam: 10:21 Constitutional: GEN: NAD Head: atraumatic Eyes: EOMI Ears: External ears are ec2 normal. CV: regular rate LUNGS: no respiratory distress ABD: Minimally distended, soft, nontender, no guarding, nonrigid SKIN: no evidence of rashes MSK: no evidence of trauma NEURO: moves all extremities equally Vital Signs: 10:13 BP 143 / 83; Pulse 94; Resp 20; Temp 98.6(TE); Pulse Ox 97% on R/A; Weight 81.65 kg; ld1 Height 6 ft. 0 in. ; Pain 7/10; 11:21 BP 119 / 71; Pulse 85; Resp 19; Pulse Ox 98% ; tm6 12:25 BP 151 / 85; Pulse 92; Resp 17; Pulse Ox 97% on R/A; Pain 0/10; tm6 10:13 Body Mass Index 24.41 (81.65 kg, 182.88 cm) ld1 10:13 Pain Scale: Adult ld1 12:25 Pain Scale: Adult tm6 MDM: 10:12 Patient medically screened. ec2 10:21 ED course: Patient arrives today due to concern for abdominal pain as well as ec2 constipation and nausea. Examination remarkable for minimally distended individual was otherwise in no acute distress, no guarding nonrigid. Will obtain lab work, CT abdomen pelvis, treat patient's with crystalloid, Toradol as well as antiemetic. Currently considering process such as constipation, small bowel obstruction, lower suspicion for intra-abdominal infection. . 11:07 ED course: CBC is reassuring without leukocytosis or anemia, metabolic profile with ec2 appropriate renal function and electrolytes, lipase within normal ranges. Pending CT abdomen pelvis . 12:34 ED course: CT abdomen pelvis with moderate amount of stool burden, some bladder changes ec2 reported, patient does not complain of any urinary process at this point, will defer antibiotics for UTI. I will prescribe medications for his constipation otherwise no evidence of obstruction. Patient discharged home, return precautions given.. 12:41 Data reviewed: vital signs. ec2 03/30 10:20 Order name: CBC with Diff; Complete Time: 11:06 ec2 03/30 10:20 Order name: CMP; Complete Time: 11:06 ec2 03/30 10:20 Order name: Lipase; Complete Time: 11:06 ec2 03/30 10:20 Order name: CT Abd/Pelvis - IV Contrast Only; Complete Time: 12:34 ec2 03/30 10:20 Order name: IV Saline Lock; Complete Time: 10:31 ec2 03/30 10:20 Order name: Labs collected and sent; Complete Time: 10:31 ec2 Administered Medications: 10:41 Drug: NS 0.9% IV 1000 ml IV at 1 bolus Per protocol; 1000 mL bolus Route: IV; Rate: 1 ld1 bolus; Site: left antecubital; 10:41 Drug: hydrOXYzine PO 50 mg PO once Route: PO; ld1 10:42 Drug: TORadol - Ketorolac IVP 15 mg IVP once Route: IVP; Site: left antecubital; ld1 10:42 Drug: Ondansetron IVP 4 mg IVP once; over 2 minutes Route: IVP; Site: left antecubital; ld1 Disposition Summary: 03/30/23 12:35 Discharge Ordered Notes: Location: Home ec2 Condition: Stable ec2 Diagnosis - Constipation ec2 Discharge Instructions: - Discharge Summary Sheet ec2 Forms: - Medication Reconciliation Form ec2 - Thank You Letter ec2 - Antibiotic Education ec2 - Prescription Opioid Use ec2 - Patient Portal Instructions ec2 - Leadership Thank You Letter ec2 Prescriptions: - Lactulose 10 gram/15 mL Oral Solution - take 30 milliliters ORAL route once daily; 300 milliliter; Refills: 0, Product ec2 Selection Permitted Signatures: Dispatcher [employer] Adrienne Candelaria RN RN ld1 Sherif Isbell MD MD ec2
[2023-03-30 13:01] VITALS: TEMP 98.6
[2023-03-30 13:06] VITALS: BP 151/85; O2SAT 97
== END 2023-03-30 12:46 | disposition home or self-care (01) ==
LOC: ER 10:02
DX: K59.00 Constipation, unspecified (principal)
CPT/HCPCS: 85025; 36415; 83690; 80053; 74177; 96375; 96374; 99284; Q9967; J2405; J7030

== ENCOUNTER 2024-04-25 13:29 | Emergency (ER) | payer BC, OTHER ==
--- OUTSIDE RECORDS SUMMARY | 2024-04-25 13:31 | XMS REPORT | Continuity of Care Document ---
Author Name Unknown Address [address] [place] [address] [employer] Address [address] [place] [address] [address] [place] [address] Care Team Providers Care Fly Fishing Guide Name Role Phone Unavailable Unavailable Unavailable
[2024-04-25] MEDS ORDERED: LIDOCAINE 4% PATCH ONE (14:06)
[2024-04-25] MEDS ORDERED: DIAZEPAM 10 MG/2 ML INJ SYRINGE ONE (14:06)
[2024-04-25] MEDS ORDERED: KETOROLAC 30 MG/ML INJ ONE (14:06)
[2024-04-25 14:20] LABS: Absolute Basophils 0.1 K/uL (0-0.5); Absolute Eosinophils 0.2 K/uL (0-0.5); Absolute Lymphocytes (CBC) 2.8 K/uL (0.7-4.9); Absolute Monocytes 0.7 K/uL (0.1-1.3); Absolute Neutrophil 4.4 K/uL (1.8-8.0); Basophils % 0.9 % (0-1.3); Eosinophils % 2.3 % (0-4.4); Hematocrit 45.6 % (39.6-49.0); Hemoglobin 15.6 g/dL (13.6-17.9); Lymphocytes % 34.7 % (15.3-44.8); MCH 29.9 pg (27.0-35.0); MCHC 34.2 g/dL (32.0-36.0); MCV 87.6 fL (80-100); MPV 7.5 fL (7.6-11.3); Monocytes % 8.6 % (3.3-12.3); Neutrophils % 53.5 % (41.7-73.7); Platelets 263 thou/uL (152-406); RBC Red Blood Cell Count 5.21 M/uL (4.33-5.43); Red Cell Distribution Width 13.2 % (12.1-15.2)
[2024-04-25] MEDS ORDERED: NA CHLORIDE 0.9% 250 ML ONE (14:30)
[2024-04-25 14:32] LABS: Anion Gap 7.1 mEq/L (5.0-15.0); Potassium 4.1 mEq/L (3.5-5.1)
--- NOTE | 2024-04-25 14:41 | RAD REPORT ---
EXAM: CT brain without contrast HISTORY: fall w/ possible loc COMPARISON: 03/27/2013 TECHNIQUE: Multiple contiguous axial images were obtained and a CT of the brain without contrast. Sag ittal and coronal reformats were performed. One or more of the following dose reduction techniques were used: Automated exposure control, adjust ment of the mA and/or kV according to patient size, and/or iterative reconstruction. FINDINGS: No evidence of hydrocephalus, intracranial hemorrhage, or extra-axial fluid collection. The brain is normal in morphology. No evidence of midline shift or areas of brain edema. The calvarium is intact. Chronic left maxillary sinus opacification. Previous repair of the left infe rior orbital rim. IMPRESSION: No evidence of acute intracranial abnormality. EXAM: CT of the cervical spine without contrast HISTORY: Neck pain, injury fall w/ possible loc TECHNIQUE: Multiple contiguous axial images were obtained in a CT of the cervical spine without contr ast. Sagittal and coronal reformats were performed. FINDINGS: The vertebral bodies demonstrate normal height and alignment. No evidence of acute fracture or subluxation.. Mild mid cervical degenerative spondylosis. No prevertebral soft tissue swelling is seen. The posterior facets are well aligned. Normal alignment of the skull base with the cervical spine is seen. The lung apices are unremarkable. IMPRESSION: No evidence of acute osseous abnormality of the cervical spine.
--- NOTE | 2024-04-25 14:44 | RAD REPORT ---
EXAM: CT CHEST, ABDOMEN AND PELVIS WITHOUT CONTRAST CLINICAL INDICATION: Fall w/ abd wall and chest injury TECHNIQUE: CT chest, abdomen and pelvis was performed without contrast, as per department protocol. A xial, sagittal and coronal reconstructions were obtained. One or more of the following dose reduction techniques were used: Automated exposure control, adjustment of the mA and/or kV according to patient size, and/or iterative reconstruction. Unless otherwise specified, incidental findings do not require dedicated imaging follow-up. Examination is limited by the lack of intravenous contrast material. COMPARISON: No prior exam. FINDINGS: LUNGS: No evidence of airspace or interstitial process. No nodules. PLEURA: No pleural effusion. No pneumothorax. MEDIASTINUM AND LYMPH NODES: No mediastinal mass or fluid collection. Normal size mediastinal, hilar, and axillary lymph nodes. OSSEOUS STRUCTURES AND CHEST WALL: Intact. LIVER: Normal in size and contour. No focal lesion or biliary dilatation. Grossly unremarkable gallbl adder. PANCREAS: No mass, ductal dilation, or divine-pancreatic fluid. SPLEEN: Normal size. No focal lesion. ADRENALS: Normal; no mass. KIDNEYS: Normal size and contour. No hydronephrosis. URINARY BLADDER: Normal contour. GASTROINTESTINAL TRACT: No bowel obstruction, free air, significant free fluid or abscess. There is mild diverticulosis coli of the sigmoid colon without diverticulitis. APPENDIX: Normal appendix. LYMPH NODES: No lymphadenopathy. MUSCULOSKELETAL: No acute or suspicious osseous abnormality. OTHER: IMPRESSION: No acute or significant abnormalities seen in the chest, abdomen or pelvis.
--- NOTE | 2024-04-25 14:50 | EDPHYS ---
Physician Documentation [facility] Name: John Barrios Age: 68 yrs Sex: Male : 1955 Arrival Date: 04/25/2024 Time: 13:29 Bed 5 Private MD: ED Physician Sherif Isbell HPI: 04/25 13:59 This 68 yrs old Male presents to ER via EMS with complaints of Fall Injury. ec2 14:01 Patient arrives today for abdominal and chest pain after recent fall. Unlikely LOC, no ec2 head strike, no blood thinners. Historical: - Allergies: 13:40 Tylenol; iw - PMHx: 13:40 Anxiety; Chronic pain; Depression; Diabetes - NIDDM; iw - Immunization history:: Adult Immunizations not up to date. - Infectious Disease History:: Denies. - Social history:: Smoking status: Patient denies any tobacco usage or history of. ROS: 14:01 Constitutional: as per hpi ec2 Exam: 14:01 Constitutional: GEN: NAD Head: atraumatic Eyes: EOMI Ears: External ears are ec2 normal. CV: regular rate LUNGS: no respiratory distress ABD: non-distended, soft, not guarding, not rigid. SKIN: no evidence of rashes MSK: no evidence of trauma, no C/C/L-spine deformities or crepitus appreciated. Vital Signs: 13:38 BP 150 / 81; Pulse 86; Resp 16; Temp 98.1; Pulse Ox 100% on R/A; Weight 79.38 kg; iw Height 6 ft. 0 in. ; Pain 10/10; 13:38 Body Mass Index 23.73 (79.38 kg, 182.88 cm) iw 13:38 Pain Scale: Adult iw MDM: 13:41 Medical Screening Exam initiated ec2 14:01 Data reviewed: vital signs, nurses notes. ED course: Patient arrives today for ec2 evaluation of pain in multiple areas after recent fall. Examination shows no focal injuries. Will obtain imaging given the patient's age. Ultimately patient with multiple areas of pain and history of chronic pain and anxiety, patient asking for Dilaudid and Ativan for pain which instructed we will not be doing.. 14:47 ED course: CT imaging is unrevealing. Will discharge home have the patient follow-up ec2 with his primary care doctor.. 04/25 14:00 Order name: CBC with Diff; Complete Time: 14:32 ec2 04/25 14:00 Order name: BMP; Complete Time: 14:32 ec2 04/25 13:54 Order name: CT Chest Abdomen Pelvis W/O Contrast; Complete Time: 14:47 ec2 04/25 13:54 Order name: CT Head C Spine; Complete Time: 14:47 ec2 04/25 14:00 Order name: IV; Complete Time: 14:13 ec2 Administered Medications: 14:15 Drug: Lidoderm Topical Patch 5 % (700 mg/patch) 1 patches Topical once; leave on for 12 aa5 hours; cover most painful area; may cut into smaller pieces {Note: applied to right scapula.} Route: Topical; Site: affected area; 14:16 Drug: Diazepam IM 5 mg IM once Route: IM; Site: right deltoid; aa5 15:15 Follow up: Response: No adverse reaction; Pain is decreased iw 14:16 Drug: Ketorolac IM 15 mg IM once Route: IM; Site: left deltoid; aa5 15:10 Follow up: Response: No adverse reaction; Pain is decreased iw 14:43 Drug: NS 0.9% IV 250 ml IV at bolus once; to be given as a bolus over 30 minutes Route: iw IV; Rate: bolus; Site: left antecubital; 15:20 Follow up: IV Status: Completed infusion iw Disposition Summary: 04/25/24 14:49 Discharge Ordered Notes: Location: Home ec2 Condition: Stable ec2 Diagnosis - Chronic pain syndrome ec2 - Abdominal pain, Generalized ec2 - Pain in right shoulder ec2 - Drug Seeking Behavior ec2 Followup: ec2 - With: Private Physician - When: - Reason: Re-evaluation by your physician Discharge Instructions: - Discharge Summary Sheet ec2 - Chronic Pain, Adult ec2 Forms: - Medication Reconciliation Form ec2 - Antibiotic Education ec2 - Prescription Opioid Use ec2 - Patient Portal Instructions ec2 - Leadership Thank You Letter ec2 Signatures: Dispatcher [employer] Evelia Fernandez RN RN Rosario Joshi RN RN aa5 Sherif Isbell MD MD ec2 Corrections: (The following items were deleted from the chart) 13:40 13:40 Allergies: NKA; iw iw
--- NOTE | 2024-04-25 14:50 | ER ---
Nurse's Notes [facility] Name: John Barrios Age: 68 yrs Sex: Male : 1955 Arrival Date: 04/25/2024 Time: 13:29 Bed 5 Private MD: Diagnosis: Chronic pain syndrome;Abdominal pain, Generalized;Pain in right shoulder;Drug Seeking Behavior Presentation: 04/25 13:38 Chief complaint: Patient states: was holding a ladder on his shoulder and he fell, iw rolled down the [place] [employer] [place] bed about 20 feet , has pain to right shoulder, right arm, lower abdomen. Coronavirus screen: At this time, the client does not indicate any symptoms associated with coronavirus-19. Ebola Screen: No symptoms or risks identified at this time. Initial Sepsis Screen: Does the patient meet any 2 criteria? No. Patient's initial sepsis screen is negative. Does the patient have a suspected source of infection? No. Patient's initial sepsis screen is negative. Risk Assessment: Do you want to hurt yourself or someone else? Patient reports no desire to harm self or others. Onset of symptoms was April 25, 2024. 13:38 Method Of Arrival: EMS: [facility] iw 13:38 Acuity: MELY 3 iw Historical: - Allergies: 13:40 Tylenol; iw - PMHx: 13:40 Anxiety; Chronic pain; Depression; Diabetes - NIDDM; iw - Immunization history:: Adult Immunizations not up to date. - Infectious Disease History:: Denies. - Social history:: Smoking status: Patient denies any tobacco usage or history of. Screenin:12 [facility] ED Fall Risk Assessment (Adult) History of falling in the last 3 months, iw including since admission Yes- single mechanical fall (1 pt) Confusion or Disorientation No (0 pts) Intoxicated or Sedated No (0 pts) Impaired Gait No (0 pts) Mobility Assist Device Used No (0 pt) Altered Elimination No (0 pt) Score/Fall Risk Level 0 - 2 = Low Risk Oriented to surroundings, Maintained a safe environment. Abuse screen: Denies threats or abuse. Nutritional screening: No deficits noted. Tuberculosis screening: No symptoms or risk factors identified. Assessment: 14:11 General: Appears in no apparent distress. Behavior is calm, cooperative. Pain: iw Complains of pain in abdomen and right arm Pain does not radiate. Pain currently is 10 out of 10 on a pain scale. Neuro: Level of Consciousness is awake, alert, obeys commands, Oriented to person, place, time, situation, Moves all extremities. Full function. Cardiovascular: Patient's skin is warm and dry. Respiratory: Respiratory effort is even, unlabored, Respiratory pattern is regular, symmetrical. GI: Abdomen is non-distended, Abd is soft X 4 quads. Derm: Skin is intact, is healthy with good turgor. 14:44 Reassessment: Patient appears in no apparent distress at this time. Patient and/or iw family updated on plan of care and expected duration. Pain level reassessed. Patient is alert, oriented x 3, equal unlabored respirations, skin warm/dry/pink. Vital Signs: 13:38 BP 150 / 81; Pulse 86; Resp 16; Temp 98.1; Pulse Ox 100% on R/A; Weight 79.38 kg; iw Height 6 ft. 0 in. ; Pain 10/10; 13:38 Body Mass Index 23.73 (79.38 kg, 182.88 cm) iw 13:38 Pain Scale: Adult iw ED Course: 13:37 Patient arrived in ED. iw 13:40 Triage completed. iw 13:41 Sherif Isbell MD is Attending Physician. ec2 13:50 Rosario Ayala, ANA LUISA is Primary Nurse. aa5 14:11 Initial lab(s) drawn, by me, sent to lab. Inserted saline lock: 20 gauge in left iw antecubital area, using aseptic technique. Blood collected. Flushed with 10 mL NS. 14:11 Arm band placed on. iw 14:12 Patient has correct armband on for positive identification. Provided Education on: iw labs/meds. Client placed on continuous cardiac and pulse oximetry monitoring. NIBP monitoring applied. 14:25 Evelia Barrios, RN is Primary Nurse. iw 14:35 CT Chest Abdomen Pelvis W/O Contrast In Process Unspecified. EDMS 14:35 CT Head C Spine In Process Unspecified. EDMS 14:44 No provider procedures requiring assistance completed. iw 15:06 IV discontinued, intact, bleeding controlled, No redness/swelling at site. Pressure iw dressing applied. Administered Medications: 14:15 Drug: Lidoderm Topical Patch 5 % (700 mg/patch) 1 patches Topical once; leave on for 12 aa5 hours; cover most painful area; may cut into smaller pieces {Note: applied to right scapula.} Route: Topical; Site: affected area; 14:16 Drug: Diazepam IM 5 mg IM once Route: IM; Site: right deltoid; aa5 15:15 Follow up: Response: No adverse reaction; Pain is decreased iw 14:16 Drug: Ketorolac IM 15 mg IM once Route: IM; Site: left deltoid; aa5 15:10 Follow up: Response: No adverse reaction; Pain is decreased iw 14:43 Drug: NS 0.9% IV 250 ml IV at bolus once; to be given as a bolus over 30 minutes Route: iw IV; Rate: bolus; Site: left antecubital; 15:20 Follow up: IV Status: Completed infusion iw Medication: 14:12 VIS not applicable for this client. iw Outcome: 14:49 Discharge ordered by . ec2 15:06 Discharged to home ambulatory, iw 15:06 Condition: good 15:06 Discharge instructions given to patient, Instructed on discharge instructions, follow up and referral plans. Demonstrated understanding of instructions, follow-up care, 15:07 Patient left the ED. iw Signatures: Dispatcher [employer] Evelia Fernandez RN RN iw Rosario Ayala RN RN aa5 Sherif Isbell MD MD ec2 Corrections: (The following items were deleted from the chart) 13:40 13:40 Allergies: NKA; iw iw
[2024-04-25 17:47] VITALS: BP 150/81; TEMP 98.1; O2SAT 100
== END 2024-04-25 15:07 | disposition home or self-care (01) ==
LOC: ER 13:29
DX: G89.4 Chronic pain syndrome (principal); R10.84 Generalized abdominal pain; M25.511 Pain in right shoulder; Z76.5 Malingerer [conscious simulation]; W18.30XA Fall on same level, unspecified, initial encounter; E11.9 Type 2 diabetes mellitus without complications
CPT/HCPCS: 96365; 85025; 80048; 36415; 70450; 71250; 72125; 74176; 96372; 99284; J2003; J3360; J7050

== ENCOUNTER 2025-02-27 12:41 | Emergency (ER) | payer BC, OTHER ==
--- OUTSIDE RECORDS SUMMARY | 2025-02-27 12:43 | XMS REPORT | Continuity of Care Document ---
Author Name Unknown Address [address] [place] [address] Address [address] [facility]. [address] [place] [address] Care Team Providers Care Embossograph Operator Name Role Phone Unavailable Unavailable Unavailable
[2025-02-27] MEDS ORDERED: ONDANSETRON 4 MG/2 ML VIAL ONE (13:03)
[2025-02-27] MEDS ORDERED: NA CHLORIDE 0.9% 1,000 ML ONE (13:03)
[2025-02-27 13:25] LABS: Absolute Lymphocytes (CBC) 2.5 K/uL (0.7-4.9); Hematocrit 53.0 % (39.6-49.0); Hemoglobin 17.9 g/dL (13.6-17.9); MCH 27.8 pg (27.0-35.0); MCHC 33.8 g/dL (32.0-36.0); MCV 82.2 fL (80-100); MPV 7.7 fL (7.6-11.3); Nucleated RBC Absolute Count 0.0 (0-0); Nucleated Red Blood Cells % 0.3 % (0-0); RBC Red Blood Cell Count 6.44 M/uL (4.33-5.43); White Blood Count 7.60 thou/uL (4.3-10.9)
[2025-02-27 13:27] LABS: Sqamous Epithelial None Seen /HPF (None Seen); Urine Culture Reflex Order NOT NEEDED; Urine Microscopic Reflex YN ORDER UMIC
[2025-02-27 13:41] LABS: ALT/SGPT 25.0 U/L (16-61); AST/SGOT 13.0 U/L (15-37); Albumin 2.9 g/dL (3.4-5.0); Albumin/Globulin Ratio 0.8 (1.1-1.8); Alkaline Phosphatase 82.0 U/L (45-117); Anion Gap 8.9 mEq/L (5.0-15.0); BUN Blood Urea Nitrogen 11.0 mg/dL (7-18); Globulin 3.8 g/dL (2.3-3.5); Glucose Level 332.0 mg/dL (74-106); Lipase 25.0 U/L (13-75); Magnesium 1.7 mg/dL (1.6-2.4); Potassium 3.9 mEq/L (3.5-5.1)
--- NOTE | 2025-02-27 13:57 | EDPHYS ---
Physician Documentation [facility] Name: John Barrios Age: 69 yrs Sex: Male : 1955 Arrival Date: 02/27/2025 Time: 12:41 Bed 8 Private MD: ED Physician Ben Gtz HPI: 02/27 13:32 This 69 yrs old Male presents to ER via EMS with complaints of High Blood dr5 Sugar. 13:32 Onset: The symptoms/episode began/occurred 3 day(s) ago. Patient is a 69-year-old male dr5 with history of chronic anxiety, depression, diabetes, chronic pain coming in with 3 days of malaise. Patient reports that a superintendent police stopped by for a welfare check and recommended he come to the hospital. Patient presents by EMS. EMS states blood sugar in the 400s. When speaking with patient, patient states " when Dr. Dominguez is here, he always gives me IV Ativan and that is what I need." Patient reports he takes 2 Xanax daily for his anxiety. Patient has no other complaints.. Historical: - Allergies: 12:43 POISON PETTY; bp 12:43 Tylenol; bp - PMHx: 12:43 Anxiety; Chronic pain; Depression; Diabetes - NIDDM; bp - Immunization history:: Adult Immunizations unknown. - Infectious Disease History:: Denies. - Social history:: Smoking status: unknown. ROS: 13:32 Constitutional: as per hpi dr5 Exam: 13:32 Constitutional: This is a well developed, well nourished patient who is awake, alert, dr5 and in no acute distress. Head/Face: Normocephalic, atraumatic. Eyes: Pupils equal round and reactive to light, extra-ocular motions intact. Lids and lashes normal. Conjunctiva and sclera are non-icteric and not injected. Cornea within normal limits. Periorbital areas with no swelling, redness, or edema. Neck: Trachea midline, no thyromegaly or masses palpated, and no cervical lymphadenopathy. Supple, full range of motion without nuchal rigidity, or vertebral point tenderness. No Meningismus. Chest/axilla: Normal chest wall appearance and motion. Nontender with no deformity. No lesions are appreciated. Cardiovascular: Regular rate and rhythm with a normal S1 and S2. Normal PMI, no JVD. No pulse deficits. Respiratory: Lungs have equal breath sounds bilaterally, clear to auscultation. No rales, rhonchi or wheezes noted. No increased work of breathing, no retractions or nasal flaring. Back: No spinal tenderness. No costovertebral tenderness. Full range of motion. Skin: Warm, dry with normal turgor. Normal color with no rashes, no lesions, and no evidence of cellulitis. MS/ Extremity: Pulses equal, no cyanosis. Neurovascular intact. Full, normal range of motion. Neuro: Awake and alert, GCS 15, oriented to person, place, time, and situation. Cranial nerves II-XII grossly intact. Motor strength 5/5 in all extremities. Sensory grossly intact. Cerebellar exam normal. Normal gait. Vital Signs: 12:42 BP 160 / 88; Pulse 90; Resp 16; Temp 98; Pulse Ox 98% ; bp 14:00 BP 161 / 89; Pulse 84; Resp 18 S; Temp 97.9(TE); Pulse Ox 99% on R/A; aa5 MDM: 12:44 Medical Screening Exam initiated dr5 14:21 Differential diagnosis: DKA, hyperglycemia, Electrolyte Abnormality, PITA, Pancreatitis. dr5 Data reviewed: vital signs, nurses notes, lab test result(s), amylase and lipase, CBC, white blood cell count, hemoglobin, hematocrit, platelets, electrolytes, sodium, potassium, chloride, serum bicarbonate, BUN, creatinine, serum glucose, urinalysis, EKG. Consideration of Admission/Observation Escalation of care including admission/observation considered. Escalation considered if patient found to have elevated GAP concerning for DKA. I considered the following discharge prescriptions or medication management in the emergency department I discussed and recommended Over The Counter medications, Medications were administered in the Emergency Department. See MAR. Test considered but Not performed: X-ray: X-ray considered but not completed as patient does not have shortness of breath or chest pain.. Care significantly affected by the following chronic conditions: Anxiety, Chronic Pain, Depression, Diabetes. Care significantly affected by the following Social Determinants of Health: Poor access to healthcare and/or lack of insurance, Poor access to transportation, Inadequate housing, Problems related to employment. Counseling: I had a detailed discussion with the patient and/or guardian regarding the historical points, exam findings, and any diagnostic results supporting the discharge/admit diagnosis, the presence of at least one elevated blood pressure reading (>120/80) during this emergency department visit, lab results, the need for outpatient follow up, for definitive care, a family practitioner, to return to the emergency department if symptoms worsen or persist or if there are any questions or concerns that arise at home. Special discussion: I discussed with the patient/guardian in detail that at this point there is no indication for admission to the hospital. It is understood, however, that if the symptoms persist or worsen the patient needs to return immediately for re-evaluation. ED course: Had discussion with plan the beginning of his visit today that we would do blood work, get a urine sample and see what is going on. Patient reports and demands IV Ativan and to see the physician. I explained to patient multiple times that I will be the provider take care of him and he stated that Dr. Dominguez always gives him IV Ativan. Patient states that he does not want to be here and is ready to go and that no one has taken care of him. I explained to him that I would not mind giving him medicine for his anxiety but patient demands having it now before blood work or urine is back. Blood work and urine printed and given to patient, wrote patient for hydroxyzine to take as needed, and recommended follow-up with pain management and primary care doctor. Patient crumpled up prescription and did not take it with him. Patient ambulated out of ER with steady gait and further negative comments on his way out.. 02/27 12:46 Order name: CBC with Diff; Complete Time: 13: [facility] 02/27 12:46 Order name: CMP; Complete Time: 13: [facility] 02/27 12:46 Order name: Lipase; Complete Time: 13: [facility] 02/27 12:46 Order name: Magnesium; Complete Time: 13:54 [facility] 02/27 12:46 Order name: Phosphorus; Complete Time: 13: [facility] 02/27 12:57 Order name: UA Rfx Dontrell Cult if indicated; Complete Time: 13: [facility] 02/27 12:46 Order name: IV Saline Lock; Complete Time: 13: [facility] 02/27 12:46 Order name: Labs collected and sent; Complete Time: 13: [facility] 02/27 12:57 Order name: EKG - Nurse/Tech; Complete Time: 13: [facility] EC: Rate is 86 beats/min. Rhythm is regular. QRS [place] is Normal. [place] interval is normal at dr5 188 msec. QRS interval is normal at 82 msec. Clinical impression: Normal ECG and No evidence of ischemia. Administered Medications: 13:17 Drug: Ondansetron IVP 4 mg IVP once; over 2 minutes Route: IVP; Site: right antecubital;aa5 13:20 Follow up: Response: No adverse reaction aa5 13:17 Drug: NS 0.9% IV 1000 ml IV at 1 bolus Per protocol; to be given as a bolus over 60 aa5 minutes Route: IV; Rate: 1 bolus; Site: right antecubital; 14:07 Follow up: IV Status: Completed infusion; IV Intake: 1000ml aa5 Disposition Summary: 02/27/25 13:56 Discharge Ordered Notes: Location: Home dr5 Condition: Stable dr5 Diagnosis - Generalized anxiety disorder dr5 - Diabetes mellitus due to underlying condition with hyperglycemia dr5 Followup: dr5 - With: Emergency Department - When: As needed - Reason: Worsening of condition Followup: dr5 - With: Private Physician - When: 1 - 2 days - Reason: Recheck today's complaints, Continuance of care, Re-evaluation by your physician Discharge Instructions: - Discharge Summary Sheet dr5 - Hyperglycemia dr5 Forms: - Work release form dr5 - Medication Reconciliation Form dr5 - Patient Portal Instructions dr5 - Leadership Thank You Letter dr5 Prescriptions: - Hydroxyzine HCl 25 mg Oral Tablet - take 1 tablet ORAL route every 6 hours As needed; 30 tablet; Refills: 0, dr5 Product Selection Permitted Signatures: Dispatcher [employer] EDRosario Rodriguez RN RN aa5 Clint Holcomb RN ANA LUISA bp Levi Cardona, COMMERCIAL DECORATOR-C COMMERCIAL DECORATOR-[facility]5 Corrections: (The following items were deleted from the chart) 12:57 12:57 UA Rfx Dontrell Cult if indicated+U.LAB.BRZ ordered. EDMS EDMS
--- NOTE | 2025-02-27 13:57 | ER ---
Nurse's Notes [facility] Name: John Barrios Age: 69 yrs Sex: Male : 1955 Arrival Date: 02/27/2025 Time: 12:41 Bed 8 Private MD: Diagnosis: Generalized anxiety disorder;Diabetes mellitus due to underlying condition with hyperglycemia Presentation: 02/27 12:42 Chief complaint: EMS states: MALAISE x3 DAYS, BGL 423 ON SCENE, NO H/O DM. Coronavirus bp screen: At this time, the client does not indicate any symptoms associated with coronavirus-19. Ebola Screen: No symptoms or risks identified at this time. Initial Sepsis Screen: Does the patient meet any 2 criteria? No. Patient's initial sepsis screen is negative. Does the patient have a suspected source of infection? No. Patient's initial sepsis screen is negative. Risk Assessment: Do you want to hurt yourself or someone else? Patient reports no desire to harm self or others. Onset of symptoms is unknown. Care prior to arrival: IV initiated. 18 GA, in the left forearm, Glucose check: 423. 12:42 Method Of Arrival: EMS: [facility] bp 12:42 Acuity: MELY 3 bp Triage Assessment: 12:43 General: Appears in no apparent distress. Behavior is calm, cooperative, appropriate bp for age. Pain: Denies pain. EENT: No deficits noted. Neuro: Level of Consciousness is awake, alert, obeys commands, Oriented to Appropriate for age. Cardiovascular: Rhythm is sinus rhythm. Respiratory: No deficits noted. GI: No signs and/or symptoms were reported involving the gastrointestinal system. : No signs and/or symptoms were reported regarding the genitourinary system. Derm: No deficits noted. Musculoskeletal: No deficits noted. Historical: - Allergies: 12:43 POISON PETTY; bp 12:43 Tylenol; bp - PMHx: 12:43 Anxiety; Chronic pain; Depression; Diabetes - NIDDM; bp - Immunization history:: Adult Immunizations unknown. - Infectious Disease History:: Denies. - Social history:: Smoking status: unknown. Screenin:19 [facility] ED Fall Risk Assessment (Adult) History of falling in the last 3 months, nh2 including since admission No falls in past 3 months (0 pts) Confusion or Disorientation No (0 pts) Intoxicated or Sedated No (0 pts) Impaired Gait No (0 pts) Mobility Assist Device Used No (0 pt) Altered Elimination No (0 pt) Score/Fall Risk Level 0 - 2 = Low Risk Oriented to surroundings, Maintained a safe environment, Educated pt \T\ family on fall prevention, incl call for assistance when getting out of bed, Assessed \T\ reinforced patient's understanding of fall precautions, Hourly rounding (assess needs \T\ fall precautionary measures) done. Abuse screen: Denies threats or abuse. Denies injuries from another. Nutritional screening: No deficits noted. Tuberculosis screening: No symptoms or risk factors identified. Assessment: 12:50 Reassessment: PT AO4. REFUSING ASSISTANCE WITH USING URINAL. INSISTING ATIVAN IS ONLY bp MEDICINE HE NEEDS OR WILL ACCEPT. 13:19 General: Appears distressed, Behavior is agitated, anxious, fussy. Pain: Complains of nh2 pain in generalized Pain currently is 10 out of 10 on a pain scale. Quality of pain is described as aching, Pain began 2 years Is intermittent, Alleviated by says the only thing that helps is ativan. Neuro: Level of Consciousness is awake, alert, Oriented to person, place, time, situation, Reports weakness. Cardiovascular: Reports chest pain, Patient's skin is warm and dry. Rhythm is sinus rhythm. Respiratory: Airway is patent Trachea midline Respiratory effort is even, unlabored, Respiratory pattern is regular, symmetrical, Denies shortness of breath. GI: Abdomen is round obese, Patient currently denies nausea, vomiting. : No signs and/or symptoms were reported regarding the genitourinary system. Denies burning with urination. EENT: No signs and/or symptoms were reported regarding the EENT system. Derm: Reports pain that is 10 out of 10 on a pain scale. states having chronic pain of skin. Musculoskeletal: Circulation, motion, and sensation intact. 14:00 Reassessment: Patient is alert, oriented x 3, equal unlabored respirations, skin aa5 warm/dry/pink. 14:07 Reassessment: Pt upset about not receiving prescription for Ativan, reports has aa5 prescription of Xanax at home. . Vital Signs: 12:42 BP 160 / 88; Pulse 90; Resp 16; Temp 98; Pulse Ox 98% ; bp 14:00 BP 161 / 89; Pulse 84; Resp 18 S; Temp 97.9(TE); Pulse Ox 99% on R/A; aa5 ED Course: 12:42 Patient arrived in ED. bp 12:43 Triage completed. bp 12:43 Arm band placed on. bp 12:44 Levi Cardona FNP-C is PHCP. dr5 12:44 Ben Gtz MD is Attending Physician. dr5 12:47 Clint Holcomb, ANA LUISA is Primary Nurse. bp 13:11 Initial lab(s) drawn, by me, sent to lab. Inserted saline lock: 20 gauge in right rk3 antecubital area, using aseptic technique. Blood collected. Flushed with 10 mL NS. Maintain EMS IV. Dressing intact. Good blood return noted. Site clean \T\ dry. Gauge \T\ site: 18g in LAC. Flushed with 10 mL NS. 13:19 Patient has correct armband on for positive identification. Bed in low position. Call nh2 light in reach. Side rails up X 1. Provided Education on: using call light for assistance. 13:27 No provider procedures requiring assistance completed. nh2 14:07 IV discontinued, intact, bleeding controlled, No redness/swelling at site. Pressure aa5 dressing applied, 20G to R AC and L AC dc'd. Administered Medications: 13:17 Drug: Ondansetron IVP 4 mg IVP once; over 2 minutes Route: IVP; Site: right antecubital;aa5 13:20 Follow up: Response: No adverse reaction aa5 13:17 Drug: NS 0.9% IV 1000 ml IV at 1 bolus Per protocol; to be given as a bolus over 60 aa5 minutes Route: IV; Rate: 1 bolus; Site: right antecubital; 14:07 Follow up: IV Status: Completed infusion; IV Intake: 1000ml aa5 Medication: 13:19 VIS not applicable for this client. nh2 Intake: 14:07 IV: 1000ml; Total: 1000ml. aa5 Outcome: 13:56 Discharge ordered by . dr5 14:07 Discharged to home ambulatory, aa5 14:07 Condition: stable 14:07 Discharge instructions given to patient, Instructed on discharge instructions, follow up and referral plans. medication usage, Demonstrated understanding of instructions, follow-up care, medications, Prescriptions given X 1, Pt was noted throwing discharge paperwork onto floor as he was walking out of ER. 14:10 Patient left the ED. aa5 Signatures: Rosario Ayala, RN RN aa5 Clint Holcomb, RN RN bp Danilo Morel, ANA LUISA Tam RN nh2 Levi Cardona, HEATING TECHNICIAN-C HEATING TECHNICIAN-Cdr5 Francisco Vallejo rk3 Corrections: (The following items were deleted from the chart) 13:27 13:19 General: Appears distressed, uncomfortable, Behavior is agitated, anxious, fussy, nh2 nh2 14:20 14:00 IV discontinued, intact, bleeding controlled, No redness/swelling at site. aa5 Pressure dressing applied, 20G to R AC and L AC dc'd aa5
[2025-02-27 14:17] VITALS: BP 161/89; TEMP 97.9; O2SAT 99
== END 2025-02-27 14:10 | disposition home or self-care (01) ==
LOC: ER 12:41
DX: F41.1 Generalized anxiety disorder (principal); E08.65 Diabetes mellitus due to underlying condition with hyperglycemia
CPT/HCPCS: 96361; 93005; 85025; 81001; 36415; 83735; 84100; 83690; 80053; 96374; 99284; J2405; J7030